=== PATIENT | female | born 1985 | race Caucasian/White ===

== ENCOUNTER 2020-01-12 08:02 | Outpatient (NON) | payer OTHER, SELFPAY ==
[2020-01-13 02:59] LABS: SARS-CoV-2 RNA PCR Negative
== END 2020-01-12 08:03 ==
LOC: ANHCOVIDDT 08:04
PROVIDERS: PCP Emergency Medicine; Visit Provider Emergency Medicine
DX: Z20.828 Contact with and (suspected) exposure to other viral communicable diseases (principal); B34.9 Viral infection, unspecified
CPT/HCPCS: 87635; C9803; U0003

== ENCOUNTER 2020-04-03 16:48 | Emergency (ER) | payer OTHER, SELFPAY ==
--- NOTE | 2020-04-03 16:52 | ED.DENTAL ---
HPI - Dental/Oral General Chief complaint: Dental/Oral Stated complaint: Toothache Time Seen by Provider: 04/03/20 16:52 Source: patient and RN notes reviewed History of Present Illness HPI Narrative: Patient is a 34-year-old female who presents the urgent care with complaints of left and right lower dental pain. Patient states is been going on for several weeks but most recently within the last week to the right lower. Patient states that she has been taking Tylenol and ibuprofen [id number] without much pain relief. Patient states she is also been using Orajel and mouthwash. Patient states she is attempted to follow-up with a dentist but no one takes her insurance . Patient also reports of some mild right lower facial swelling. Denies of any fever, chills, nausea, vomiting. No other acute complaints. No acute distress noted. Patient aware of the plan of care. Some parts of this dictation were generated by voice recognition software and may contain typographical and/or grammatical inaccuracies. Related Data Home Medications Medication Instructions Recorded Confirmed diazepam 5 mg PO PRN 04/03/20 04/03/20 Allergies Allergy/AdvReac Type Severity Reaction Status Date / Time azithromycin Allergy Unknown Nausea Unverified 04/03/20 17:03 cyclobenzaprine Allergy Unknown Nausea Verified 04/03/20 17:03 sertraline Allergy Unknown Nausea Verified 04/03/20 17:03 SERTRALINE HCL Allergy Severe HIVES Uncoded 04/03/20 17:03 Review of Systems Review of Systems: Narrative: CONSTITUTIONAL: Denies fever, chills, or sweats. EYES: Denies visual changes, redness, or discharge. ENT: Denies rhinorrhea, congestion, sore throat, or otalgia. Reports of left and right dental pain and right lower facial swelling CARDIOVASCULAR: Denies chest pain, palpitations, or edema. RESPIRATORY: Denies cough or dyspnea. GASTROINTESTINAL: Denies abdominal pain, nausea, vomiting, or diarrhea. GENITOURINARY: Denies dysuria or hematuria. SKIN: Denies rash or itching. MUSCULOSKELETAL: Denies back pain, joint pain, or myalgia. NEUROLOGIC: Denies headache, numbness, or weakness. All other systems reviewed are negative, except as documented in HPI. [facility] Social History Social History Smoking end date: 03/10/10 Alcohol intake: never Comments At the time of my signature, I reviewed and agree with the nursing past medical, surgical, social, and family history. There is no relevant family history pertinent to the patient complaint. Exam Narrative: Exam Narrative: GENERAL: This is a well-nourished, well-developed patient, in no apparent distress. HEAD: normocephalic, atraumatic. EYES: PERRL. Sclera clear/white. Vision is grossly intact. EARS: External ears normal NOSE: External nose normal with no obvious nasal discharge, nares without redness, no rhinorrhea. THROAT: Mucous membranes moist, posterior pharynx clear. DENTAL: Poor dentition with multiple carious lesions and amalgam fillings noted throughout. Cusp buccal fractures to left lower right and second molars with notable amalgam fillings. Notable pinpoint abscess and erythema to right lower canine NECK: Neck supple SKIN: warm, intact with no suspicious lesions or rash, good texture and turgor. NEURO: awake, alert, and oriented to person, place and time. There were no obvious focal neurologic abnormalities. EXTREMITIES: No clubbing, cyanosis, or edema. Course Vital Signs Vital signs: Vital Signs Temperature 97.7 F 04/03/20 16:54 Pulse Rate 89 04/03/20 16:54 Respiratory Rate 16 04/03/20 16:54 Blood Pressure 110/63 04/03/20 16:54 Pulse Oximetry 100 04/03/20 16:54 Temperature 97.7 F 04/03/20 16:54 Pulse Rate 89 04/03/20 16:54 Respiratory Rate 16 04/03/20 16:54 Blood Pressure 110/63 04/03/20 16:54 Pulse Oximetry 100 04/03/20 16:54 Reviewed MDM - Dental/Oral MDM Narrative Medical decision making narrative: Advised the patient to use Prevention mouthwash ove
[2020-04-03 16:54] VITALS: BP 110/63; PULSE 89; RESP 16; TEMP 36.5; O2SAT 100
== END 2020-04-03 17:12 | disposition home or self-care (01) ==
PROVIDERS: Emergency Provider Nurse Practitioner Family; PCP Emergency Medicine
DX: K04.7 Periapical abscess without sinus (principal); K02.9 Dental caries, unspecified
CPT/HCPCS: 99213; G0463

== ENCOUNTER 2020-06-29 22:12 | Emergency (ER) | payer OTHER, SELFPAY ==
--- NOTE | ~2020-06-29 | XR_ITS ---
XR chest 2V DATE: 06/30/2020 00:01 INDICATION: Midline chest pain for 2 days. Shortness of breath. TECHNIQUE: PA and lateral views COMPARISON: 02/03/2013 PA and lateral chest FINDINGS: Normal heart size. No hilar or mediastinal enlargement. No pulmonary infiltrate or consolid ation, pleural effusion or pulmonary vascular congestion or pneumothorax. IMPRESSION: No active cardiopulmonary disease Reviewed, dictated and finalized at location A.
[2020-06-29 22:32] VITALS: BP 121/56; PULSE 82; RESP 18; TEMP 36.6; O2SAT 100
--- NOTE | 2020-06-29 22:38 | ECG_ITS ---
Measurements Intervals [place] Rate: 72 P: 78 AL: 174 QRS: 73 QRSD: 93 T: 72 QT: 362 QTc: 398 Interpretive Statements SINUS RHYTHM DELAYED PRECORDIAL R/S TRANSITION BORDERLINE ECG Electronically Signed On 06-30-2020 6:47:03 CDT by Richard Lyles D.O.
--- NOTE | 2020-06-30 00:02 | ED.GENADULT ---
HPI - General Adult General Chief complaint: Chest Pain Stated complaint: chest pain Time Seen by Provider: 06/29/20 23:52 Source: patient History of Present Illness HPI narrative: Patient is a 34 y/o female complaining intermittent mid sternal chest pain for last 2 days. She describes her pain as labor contraction and rates it as 6/10 when it occurs. She states that taking a deep breath aggravates her pain. She took meds for acid reflux, which did not help. She denies any SOB, cough or fever. Related Data Home Medications Medication Instructions Recorded Confirmed diazepam 5 mg PO PRN 04/03/20 04/03/20 Allergies Allergy/AdvReac Type Severity Reaction Status Date / Time sertraline Allergy Severe Hives Verified 06/30/20 00:20 azithromycin AdvReac Unknown Nausea Unverified 06/30/20 00:20 cyclobenzaprine AdvReac Unknown Nausea Verified 06/30/20 00:20 Review of Systems Constitutional: Constitutional: Denies chills, Denies fever(s), Denies headache(s) and Denies weakness Eyes: Eyes: Denies blurry vision ENT: Denies headache(s) and Denies neck pain Cardiovascular: Cardiovascular: Denies chest pain and Denies dyspnea Respiratory: Respiratory: Denies cough and Denies dyspnea Gastrointestinal: Gastrointestinal: Denies abdominal pain, Denies diarrhea, Denies nausea and Denies vomiting Genitourinary: Genitourinary: Denies hematuria and Denies dysuria Musculoskeletal: Musculoskeletal: Denies back pain and Denies neck pain Neurologic: Denies headache(s) and Denies weakness [facility] Social History Social History Smoking end date: 03/10/10 Alcohol intake: never Gender identity (if verbalized by the patient): Female Exam Const: General: no acute distress and well developed Orientation/consciousness: oriented to person, oriented to place, oriented to time and patient oriented x3 HENMT: Head: normocephalic Ears: external ears normal General nose exam: Normal external nose present Eyes: General: appearance normal, both eyes and all related structures Conjunctivae: conjunctivae normal Neck: Neck: normal visual inspection and full ROM Chest: Chest palpation & inspection: normal inspection of the chest and no tenderness Resp: Effort & Inspection: normal respiratory effort Auscultation: clear to auscultation bilaterally Cardio: Rate: regular rate Rhythm: regular rhythm GI: GI Palp: No abdominal tenderness and Yes Soft to palpation Skin: General skin exam: normal color and turgor normal Neuro: General: oriented to person, oriented to place, oriented to time and patient oriented x3 Cognition (Neuro): normal cognition Extrem: General: normal to inspection, full ROM and no pedal edema Psych: Appearance: grossly normal Mental Status: mental status grossly normal Affect: normal affect Course Reevaluation(s) Reevaluation #1: Rechecked. Patient feels better. Discussed with patient about test results. She wants to go home. She does not want to wait for second Troponin to be done. Date: 06/30/20 Time: 01:50 Vital Signs Vital signs: Vital Signs Temperature 36.6 C 06/29/20 22:32 Pulse Rate 82 06/29/20 22:32 Respiratory Rate 18 06/29/20 22:32 Blood Pressure 121/56 L 06/29/20 22:32 Pulse Oximetry 100 06/29/20 22:32 Temperature 36.6 C 06/29/20 22:32 Pulse Rate 73 06/30/20 02:37 Respiratory Rate 18 06/30/20 02:37 Blood Pressure 121/78 06/30/20 02:37 Pulse Oximetry 98 06/30/20 02:37 Medical Decision Making Vital Signs Vital Signs: Vital Signs Temperature 36.6 C 06/29/20 22:32 Pulse Rate 82 06/29/20 22:32 Respiratory Rate 18 06/29/20 22:32 Blood Pressure 121/56 L 06/29/20 22:32 Pulse Oximetry 100 06/29/20 22:32 Temperature 36.6 C 06/29/20 22:32 Pulse Rate 73 06/30/20 02:37 Respiratory Rate 18 06/30/20 02:37 Blood Pressure 121/78 06/30/20 02:37 Pulse Oximetry 98 06/30/20 02:37
[2020-06-30 00:19] VITALS: BP 96/68; PULSE 75; RESP 14; O2SAT 99
[2020-06-30 00:20] LABS: Basophils Percent Auto 0.3 % (0.2-1.2); Eosinophils Absolute Auto 0.1 K/mm3 (0-0.3); Eosinophils Percent Auto 1.1 % (0-4.4); Hematocrit 39.1 % (37.0-47.0); Hemoglobin 13.2 g/dL (12.0-15.0); Immature Granulocyte Absolute 0.05 K/mm3 (0.00-0.031); Immature Granulocyte Percent A 0.4 % (0-0.5); Lymphocytes Absolute Auto 2.19 K/mm3 (0.9-3.2); Lymphocytes Percent Auto 17.6 % (18.3-44.2); Mean Corpuscular HGB Conc 33.8 g/dl (32-36); Mean Corpuscular Hemoglobin 30.7 pg (26-34); Mean Corpuscular Volume 90.9 fl (80-100); Mean Platelet Volume 11.1 fl (7.4-10.4); Monocytes Absolute Auto 0.9 K/mm3 (0.1-0.6); Monocytes Percent Auto 7.3 % (2.6-8.5); Neutrophils Absolute Auto 9.1 K/mm3 (1.3-6.7); Neutrophils Percent Auto 73.3 % (45.5-73.1); Platelet Count Result 183 k/mm3 (150-375); Red Cell Distribution Width 12.1 % (11.5-14.5); White Blood Count 12.5 K/mm3 (4.5-10.0)
[2020-06-30 00:32] LABS: D Dimer 0.47 ug/mL (<0.48)
[2020-06-30 00:38] LABS: Alanine Aminotransferase 12 U/L (4-35); Albumin Level 4.3 g/dL (3.5-5.1); Alkaline Phosphatase 53 U/L (38-126); Anion Gap 6 mmol/L (8-16); Aspartate Amino Transferase 21 U/L (14-36); Bilirubin,Total 0.4 mg/dL (0.2-1.3); Blood Urea Nitrogen 8 mg/dL (7-17); Calcium 9.1 mg/dL (8.4-10.2); Carbon Dioxide 29 mmol/L (22-30); Chloride 106 mmol/L (98-107); Estimated CRCL calculation 94 ml/min; Estimated Glomerular Filt Rate > 60; Glucose 96 mg/dL (65-105); Sodium 141 mmol/L (137-145)
[2020-06-30 00:42] LABS: Troponin I < 0.012 ng/mL (0.000-0.034)
[2020-06-30] MEDS: KETOROLAC 15 MG/ML VIAL (*BKC) IV PUSH ×2 (00:49→01:47)
[2020-06-30 01:12] LABS: Potassium 3.5 mmol/L (3.4-5.0)
[2020-06-30] MEDS: SODIUM CHLORIDE 0.9% IV 1,000 ML 999 ML IV CONT (01:42)
[2020-06-30] MEDS: diphenhydrAMINE HCl INJ 50 MG/ML VIAL 25 MG IV PUSH (01:43)
[2020-06-30] MEDS: METOCLOPRAMIDE HCL INJ 10 MG/2 ML VIAL IV PUSH (01:43)
[2020-06-30 02:37] VITALS: BP 121/78; PULSE 73; RESP 18; O2SAT 98
--- NOTE | 2020-07-08 21:46 | PC.NURSE ---
LATE ENTRY This note is being entered to document information to the patient's record. The following information was omitted on [], by iv of malachi fagan @[phone][].
== END 2020-06-30 02:40 | disposition home or self-care (01) ==
PROVIDERS: Emergency Provider Emergency Medicine; PCP Emergency Medicine
DX: R07.2 Precordial pain (principal); R94.31 Abnormal electrocardiogram [ECG] [EKG]
CPT/HCPCS: 36415; 71046; 80053; 84484; 85025; 85380; 93005; 96361; 96374; 96375; 99284; J1200; J1885; J2765; J7030

== ENCOUNTER 2020-07-03 08:02 | Emergency (ER) | payer OTHER, SELFPAY ==
[2020-07-03 08:14] VITALS: BP 111/65; PULSE 83; RESP 16; TEMP 36.7; O2SAT 100
--- NOTE | 2020-07-03 08:20 | ED.URI ---
HPI - URI/Sore Throat General Chief Complaint: Upper Respiratory Infection Stated Complaint: sore throat Source: patient and RN notes reviewed Limitations: no limitations History of Present Illness HPI Narrative: The patient, who is a smoker/ nondrinker with a prior history of Covid, presents with sore throat. Patient states she has now nearly weeklong history of of symptoms which include sore throat for last couple days and congestion. This was preceded by chest tightness, for which she was seen in emergency department and had noncontributory EKG, chest x-ray and labs [WBC equal 12.5]-which she was treated symptomatically. She states her chest pain is improved but she has sore throat. No fever measured, significant cough, earache, vomiting/diarrhea, loss of taste/smell, CP, rash, S OB. She reports she had proven Covid at the end of January, and is not immunized. Related Data Home Medications Medication Instructions Recorded Confirmed diazepam 5 mg PO PRN 04/03/20 07/03/20 omeprazole 20 mg DAILY 07/03/20 07/03/20 Allergies Allergy/AdvReac Type Severity Reaction Status Date / Time sertraline Allergy Severe Hives Verified 06/30/20 00:20 azithromycin AdvReac Unknown Nausea Unverified 06/30/20 00:20 cyclobenzaprine AdvReac Unknown Nausea Verified 06/30/20 00:20 Review of Systems Review of Systems: Narrative: General/Constitutional: No weight loss,fever Eyes: N0: Redness,discharge Ears/Nose/Throat: No: Epistaxis,ear discharge Respiratory: Denies: Hemoptysis Gastrointestinal: No Vomiting, Bleeding-rectal Skin: No Lumps, eruption Neurologic: No Focal Weakness,Sz Hematologic: Denies: Petechiae/Purpura Psychiatric: No: Suicida ideationl All Other Systems: Reviewed and Negative PMFSH Social History Social History Smoking end date: 03/10/10 Alcohol intake: never Gender identity (if verbalized by the patient): Female Comments At time of signature, agree with nursing past medical, surgical, social and family history. There is no relevant family history pertinent to the presenting complaint Exam Narrative: Exam Narrative: General Appearance: Well appearing, Well nourished EYE: PERRLA, Conjunctiva clear Ears: Auditory canal normal, TM normal Nose: Rhinorrhea, Mucousal erythema Mouth/Throat: MM moist, Uvula midline, +Pharyngeal erythema w/o exudate Neck: Supple, No adenopathy Respiratory: No respiratory distress, airway patent Cardiovascular: No JVD Musculoskeletal: Non tender, Normal strength Skin: Warm, Dry Neurological: A&O x3, CN II-XII intact Psychiatric: Normal mood, Normal affect Course Vital Signs Vital signs: Vital Signs Temperature 98.1 F 07/03/20 08:14 Pulse Rate 83 07/03/20 08:14 Respiratory Rate 16 07/03/20 08:14 Blood Pressure 111/65 07/03/20 08:14 Pulse Oximetry 100 07/03/20 08:14 Temperature 98.1 F 07/03/20 08:14 Pulse Rate 83 07/03/20 08:14 Respiratory Rate 16 07/03/20 08:14 Blood Pressure 111/65 07/03/20 08:14 Pulse Oximetry 100 07/03/20 08:14 MDM - URI/Sore Throat Lab Data Labs: Strep Screen Presumptive Negative *(Reference Range: Negative)* Discharge Plan Discharge Clinical Impression: Pharyngitis Patient Disposition: Home, Self-Care Condition: Stable Instructions: Antibiotic Form, Pharyngitis (ED) Prescriptions: New Lidocaine Viscous 2 % solution 5 ml MUCOUS MEM QID PRN (Reason: pain) Qty: 100 RF: 0 amoxicillin-pot clavulanate [Augmentin] 500-125 mg tablet 1 tablet PO Q12H Qty: 20 RF: 0 No Action diazepam 5 mg tablet 5 mg PO PRN RF: 0 omeprazole 20 mg capsule,delayed release(DR/EC) 20 mg DAILY RF: 0 Follow-up/Referrals: Cy Perla MD [Primary Care Provider] -
[2020-07-04 20:46] LABS: SARS-CoV-2 RNA PCR Negative
== END 2020-07-03 08:40 | disposition home or self-care (01) ==
PROVIDERS: Emergency Provider Emergency Medicine; PCP Emergency Medicine
DX: J02.9 Acute pharyngitis, unspecified (principal); Z20.822 Contact with and (suspected) exposure to COVID-19; K21.9 Gastro-esophageal reflux disease without esophagitis
CPT/HCPCS: 87081; 87880; 99213; C9803; G0463; U0003; U0005

== ENCOUNTER 2021-01-27 16:03 | Emergency (ER) | payer OTHER, SELFPAY ==
[2021-01-27 16:09] VITALS: BP 110/52; PULSE 75; RESP 16; TEMP 37.2; O2SAT 99
--- NOTE | 2021-01-27 16:11 | ED.DENTAL ---
HPI - Dental/Oral General Chief complaint: Dental/Oral Stated complaint: Swelling on Face Time Seen by Provider: 01/27/21 16:11 Source: patient and RN notes reviewed Mode of arrival: ambulatory Limitations: no limitations History of Present Illness HPI Narrative: Sheila 35-year-old female patient who ambulated into the [facility]. Patient states she has had left sided facial swelling and left pain for the last 2 days. Patient states the pain in her teeth started 2 days ago. Patient states that yesterday swelling to the left jaw started. Patient states her highest temp was 99.3. Patient does have an appointment with [facility] school of dentistry in March. MD Complaint: tooth pain Related Data Home Medications Medication Instructions Recorded Confirmed diazepam 5 mg PO BID 04/03/20 01/27/21 amitriptyline 25 mg PO HS 01/27/21 01/27/21 Allergies Allergy/AdvReac Type Severity Reaction Status Date / Time sertraline Allergy Severe Hives Verified 01/27/21 16:09 azithromycin AdvReac Unknown Nausea Verified 01/27/21 16:09 cyclobenzaprine AdvReac Unknown Nausea Verified 01/27/21 16:09 Review of Systems Review of Systems: CONSTITUTIONAL: Denies body aches, fever, chills, or sweats. EYES: Denies visual changes, redness, or discharge. ENT: Denies rhinorrhea, congestion, sore throat, or otalgia+ left jaw swelling and tooth pain CARDIOVASCULAR: Denies chest pain, palpitations, or edema. RESPIRATORY: Denies cough or dyspnea. GASTROINTESTINAL: Denies abdominal pain, nausea, vomiting, or diarrhea. GENITOURINARY: Denies dysuria or hematuria. SKIN: Denies rash, itching, or wounds. MUSCULOSKELETAL: Denies back pain, joint pain, or myalgia. NEUROLOGIC: Denies headache, numbness, tingling, or weakness. PSYCH: Denies depression or anxiety. All systems reviewed & are unremarkable except as noted in HPI and below PMFSH Social History Social History Smoking end date: 03/10/10 Alcohol intake: never Gender identity (if verbalized by the patient): Female Comments At time of signature, I have reviewed and agree with nursing past medical, surgical, social and family history unless otherwise noted. Please see nursing chart for further information. There is no relevant family history pertinent to the presenting complaint Exam Narrative: GENERAL: Well-appearing, well-nourished, and in no acute distress. HEAD: Normocephalic, atraumatic. EYES: EOMI. No redness or drainage. Conjunctivae normal. ENT: Mucous membranes pink and moist. Nares clear. No rhinorrhea. edema noted to left maxillary area, teeth 17 and 18 are fractured with swelling, tooth 16 is fractured. NECK: Normal AROM. Supple. No lymphadenopathy. CHEST: No respiratory distress. Clear to auscultation. MUSCULOSKELETAL: No bony tenderness. EXTREMITIES: Normal range of motion. No edema. SKIN: Warm, dry, no rash. Capillary refill normal. Normal skin turgor. NEURO: No focal deficits. Alert and oriented x3. Gait steady. PSYCH: Normal affect. No signs of depression or anxiety. Course Vital Signs Vital signs: Vital Signs Temperature 37.2 C 01/27/21 16:09 Pulse Rate 75 01/27/21 16:09 Respiratory Rate 16 01/27/21 16:09 Blood Pressure 110/52 L 01/27/21 16:09 Pulse Oximetry 99 01/27/21 16:09 Temperature 37.2 C 01/27/21 16:09 Pulse Rate 75 01/27/21 16:09 Respiratory Rate 16 01/27/21 16:09 Blood Pressure 110/52 L 01/27/21 16:09 Pulse Oximetry 99 01/27/21 16:09 Reviewed MDM - Dental/Oral MDM Narrative Medical decision making narrative: Swelling to left maxillary area is noted. dental caries noted throughout, f/u with dentist. Take ibuprofen or tylenol for pain. Take augmentin until completed. Differential Diagnosis Differential diagnosis: Likely gingival abscess, dental caries, toothache, dental abscess and fracture of tooth Medical Records Attestation: I reviewed the patient's me
== END 2021-01-27 16:32 | disposition home or self-care (01) ==
PROVIDERS: Emergency Provider Nurse Practitioner Family; PCP Emergency Medicine
DX: K04.7 Periapical abscess without sinus (principal); K21.9 Gastro-esophageal reflux disease without esophagitis; F41.9 Anxiety disorder, unspecified
CPT/HCPCS: 99213; G0463

== ENCOUNTER 2021-11-06 08:26 | Emergency (ER) | payer OTHER, SELFPAY ==
--- NOTE | 2021-11-06 08:32 | ED.UPPEXIN ---
HPI - Extremity Injury (Upper) General Chief Complaint: Extremity Injury, Upper Stated Complaint: Pain in left shoulder Time Seen by Provider: 11/06/21 08:32 Source: patient Mode of arrival: ambulatory Limitations: no limitations History of Present Illness HPI narrative: Ms. Hamlin is a 36-year-old female patient presenting to the clinic today with complaints of left shoulder pain which started Friday. She states her shoulder feels tight and she is unable to move her head from side to side without pain. She denies trauma or injury to the area. She also denies increases in activity or new activity she is not used to. She does report increased stress in her life recently. She has been using Aspercreme, ibuprofen, and a heating pad for pain relief which have provided minimal relief. She does report one instance of numbness and tingling to her left arm and leg, but otherwise denies these symptoms. She denies fever, chills, nausea, vomiting, headache, visual changes. Related Data Home Medications Medication Instructions Recorded Confirmed diazepam 5 mg tablet 5 mg PO BID 04/03/20 01/27/21 amitriptyline 25 mg tablet 25 mg PO HS 01/27/21 01/27/21 Allergies Allergy/AdvReac Type Severity Reaction Status Date / Time sertraline Allergy Severe Hives Verified 01/27/21 16:09 azithromycin AdvReac Unknown Nausea Verified 01/27/21 16:09 cyclobenzaprine AdvReac Unknown Nausea Verified 01/27/21 16:09 Review of Systems Review of Systems: Pertinent positives per HPI. Patient denies any fever, chills, rash, headache, visual changes, dizziness, cough, runny nose, sore throat, shortness of breath, chest pain, palpitations, nausea, vomiting, diarrhea, constipation, abdominal pain, or any urinary issues. PMFSH Social History Social History Smoking end date: 03/10/10 Alcohol intake: never Gender identity (if verbalized by the patient): Female Comments At the time of my signature, I reviewed and agree with the nursing past medical, surgical, social, and family history. There is no relevant family history pertinent to the patient complaint. Exam Narrative: General: Well-developed, well nourished, in no apparent distress Head: Normocephalic, atraumatic. Cardio: Regular rate and rhythm, s1 and s2 normal, no murmur appreciated. Resp: Clear to auscultation bilaterally, no rhonchi, rales, wheezing or rubs. Musculoskeletal: No deformity, tender to palpation of the left trapezius muscle, no bony tenderness or midline tenderness, grossly normal range of motion but pain increases with rotation of the head/neck and with shoulder flexion and extension, muscle strength strong and equal, peripheral pulse strong, no edema, no cyanosis, normal gait and station Course Course Emergency Course: Portions of this record may have been created with voice recognition software. Level of Care: Express Care Visit Vital Signs Vital signs: Vital Signs Temperature 36.6 C 11/06/21 08:35 Pulse Rate 83 11/06/21 08:35 Respiratory Rate 20 11/06/21 08:35 Blood Pressure 118/91 H 11/06/21 08:35 Pulse Oximetry 99 11/06/21 08:35 Temperature 36.6 C 11/06/21 08:35 Pulse Rate 83 11/06/21 08:35 Respiratory Rate 20 11/06/21 08:35 Blood Pressure 118/91 H 11/06/21 08:35 Pulse Oximetry 99 11/06/21 08:35 Vital signs reviewed MDM - Extremity Injury (Upper) MDM Narrative Medical decision making narrative: At the time of visit patient is resting comfortably on exam table. Patient is presenting with left trapezius pain without mechanism of injury. There is no bony tenderness and tenderness is not reproducible on palpation of the spine. Tenderness is reproducible on palpation of the left trapezius muscle. She reports increased stress in her life currently. This appears to be increased muscle soreness and tightness. I will treat the patient with a muscle relaxer and naproxen. Th
[2021-11-06 08:35] VITALS: BP 118/91; PULSE 83; RESP 20; TEMP 36.6; O2SAT 99
== END 2021-11-06 09:03 | disposition home or self-care (01) ==
PROVIDERS: Emergency Provider Nurse Practitioner Family; PCP Emergency Medicine
DX: S16.1XXA Strain of muscle, fascia and tendon at neck level, initial encounter (principal); X58.XXXA Exposure to other specified factors, initial encounter; K21.9 Gastro-esophageal reflux disease without esophagitis; F41.9 Anxiety disorder, unspecified
CPT/HCPCS: 99213; G0463

== ENCOUNTER 2022-05-08 10:11 | Emergency (ER) | payer OTHER, SELFPAY ==
[2022-05-08 10:38] VITALS: BP 109/69; PULSE 89; RESP 18; TEMP 36.7; O2SAT 100
[2022-05-08 10:59] LABS: Appearance Urine Clear (Clear); Bilirubin Urine Negative (Negative); Blood Urine Negative (Negative); Color Urine Yellow (Yellow); Glucose Urine UA Negative (Negative); Ketones Urine Negative (Negative); Leukocyte Esterase Ur Negative LEU/UL (Negative); Nitrate Urine Negative (Negative); Protein Urine Negative (Negative); Specific Grav Ur 1.007 (1.001-1.035); Urobilinogen Urine 0.2 mg/dL (<2.0); pH Urine 6.5 (5.0-9.0)
[2022-05-08 11:02] LABS: Add Urine Microscopic? NO
--- NOTE | 2022-05-08 12:13 | PC.NURSE ---
EDP at bedside to assess pt.
--- NOTE | 2022-05-08 13:23 | ED.GENADULT ---
HPI - General Adult General Chief complaint: Unspecified Stated complaint: DENTAL INFECTION AND ?UTI Time Seen by Provider: 05/08/22 11:49 Source: patient Mode of arrival: ambulatory Limitations: no limitations History of Present Illness HPI narrative: 36-year-old female presents today with complaints of tooth infection that she has had for 3 months. Patient states she was treated in February with penicillin, March she was treated with clindamycin, and currently is Augmentin for this tooth infection . Patient has seen a dentist for this infection and was sent to the [facility] school of dentistry. She states she was seen there yesterday where they did imaging and told her that there was no abscess and that she needs root canal possible extraction of the tooth but she is continue to have pain. They knew that she was on Augmentin and did not extend her antibiotics or change her antibiotics. Patient was concerned she was septic . Patient without fever, body aches, chills. Patient also with complaints of possible UTI noting pelvic pressure but denies dysuria, hematuria, foul-smelling urine, again no fever chills or body aches. She states that this discomfort has been there for about 2 weeks. Patient does have a history of a hysterectomy. Onset (ago): month(s) Related Data Home Medications Medication Instructions Recorded Confirmed diazepam 5 mg tablet 5 mg PO BID 04/03/20 01/27/21 amitriptyline 25 mg tablet 25 mg PO HS 01/27/21 01/27/21 Allergies Allergy/AdvReac Type Severity Reaction Status Date / Time sertraline Allergy Severe Hives Verified 01/27/21 16:09 azithromycin AdvReac Unknown Nausea Verified 01/27/21 16:09 cyclobenzaprine AdvReac Unknown Nausea Verified 01/27/21 16:09 Review of Systems Review of Systems: CONSTITUTIONAL: Denies fever, chills, or sweats. EYES: Denies visual changes, redness, or discharge. ENT: Left upper tooth pain. Denies rhinorrhea, congestion, sore throat, or otalgia. CARDIOVASCULAR: Denies chest pain, palpitations, or edema. RESPIRATORY: Denies cough or dyspnea. GASTROINTESTINAL: Denies abdominal pain, nausea, vomiting, or diarrhea. GENITOURINARY: UTI possible denies dysuria or hematuria. SKIN: Denies rash or itching. MUSCULOSKELETAL: Denies back pain, joint pain, or myalgia. NEUROLOGIC: Denies headache, numbness, dizziness, or weakness. PSYCHIATRIC: Denies anxiety or depression. [facility] Social History Social History Smoking end date: 03/10/10 Alcohol intake: never Gender identity (if verbalized by the patient): Female Exam Narrative: GENERAL: Well-appearing, well-nourished, and in no acute distress. HEAD: Normocephalic, atraumatic. EYES: PERRLA and EOMI. ENT: Widespread dental decay. Tenderness to tooth #15. No erythema noted. No obvious abscess seen. Nares clear, no rhinorrhea or epistaxis. Mucous membranes moist. Oropharynx without tonsillar hypertrophy exudate or other lesions. Bilateral TMs pearly henning nonbulging NECK: Supple. No adenopathy or masses. No carotid bruits or JVD CHEST: Clear to auscultation. No respiratory distress. No wheezes rales or rhonchi HEART: Regular rate and rhythm. No murmur heard. Normal peripheral pulses. ABDOMEN: Soft, nontender, nondistended, normal active bowel sounds. EXTREMITIES: Normal range of motion. No edema. SKIN: Warm, dry, no rash. NEURO: No focal deficits. Alert and oriented x3. PSYCH: Normal mood and affect. Course Vital Signs Vital signs: Vital Signs Temperature 98.1 F 05/08/22 10:38 Pulse Rate 89 05/08/22 10:38 Respiratory Rate 18 05/08/22 10:38 Blood Pressure 109/69 05/08/22 10:38 Pulse Oximetry 100 05/08/22 10:38 Oxygen Delivery Room Air 05/08/22 10:38 Temperature 98.1 F 05/08/22 10:38 Pulse Rate 89 05/08/22 10:38 Respiratory Rate 18 05/08/22 10:38 Blood Pressure 109/69 05/08/22 10:38 Pulse Oximetry 100 05/08/22 10:3
== END 2022-05-08 13:41 | disposition home or self-care (01) ==
PROVIDERS: Emergency Medicine; Emergency Provider Nurse Practitioner Family; PCP Emergency Medicine
DX: K08.89 Other specified disorders of teeth and supporting structures (principal); G89.29 Other chronic pain
CPT/HCPCS: 81003; 81025; 99283

== ENCOUNTER 2022-07-05 19:22 | Emergency (ER) | payer OTHER, SELFPAY ==
[2022-07-05 19:28] VITALS: BP 105/68; PULSE 88; RESP 20; TEMP 36.4; O2SAT 100
[2022-07-05 22:47] VITALS: BP 102/70; PULSE 74; RESP 16; TEMP 36.6; O2SAT 100
[2022-07-05 23:30] VITALS: BP 123/58; PULSE 71; RESP 15; TEMP 36.6; O2SAT 100
[2022-07-06] MEDS: AMOXICILLIN/CLAVULANATE K 875-125 MG TAB 1 TABLET PO (00:48)
[2022-07-06] MEDS: HYDROcodone/acetaminophen (*CRX) 5-325 MG TABLET 1 TAB PO (01:03)
--- NOTE | 2022-07-06 01:17 | ED.DENTAL ---
HPI - Dental/Oral General Chief complaint: Dental/Oral Stated complaint: Dental abscess Time Seen by Provider: 07/05/22 23:31 Source: patient Mode of arrival: ambulatory Limitations: no limitations History of Present Illness HPI Narrative: This is a 36-year-old female presents the ED with chief complaint of left lower dental pain onset x1 week. Reports pain near the molars. States it is radiating into her jaw and ear. She has a dental appointment in 3 days. States she is here because the pain is not controlled with ibuprofen or Tylenol at home. Denies fevers, chills, sore throat. Related Data Home Medications Medication Instructions Recorded Confirmed diazepam 5 mg tablet 5 mg PO BID 04/03/20 01/27/21 amitriptyline 25 mg tablet 25 mg PO HS 01/27/21 01/27/21 Allergies Allergy/AdvReac Type Severity Reaction Status Date / Time sertraline Allergy Severe Hives Verified 07/05/22 19:23 azithromycin AdvReac Unknown Nausea Verified 07/05/22 19:23 cyclobenzaprine AdvReac Unknown Nausea Verified 07/05/22 19:23 Review of Systems Review of Systems: CONSTITUTIONAL: Denies fever, chills, or sweats. ENT: See HPI SKIN: Denies rash or itching. MUSCULOSKELETAL: Denies back pain, joint pain, or myalgia. NEUROLOGIC: Denies headache, numbness, dizziness, or weakness. [facility] Social History Social History Smoking end date: 03/10/10 Alcohol intake: never Gender identity (if verbalized by the patient): Female Exam Narrative: GENERAL: Well-appearing, well-nourished, and in no acute distress. HEAD: Normocephalic, atraumatic. EYES: PERRLA and EOMI. ENT: Nares clear, no rhinorrhea or epistaxis. Mucous membranes moist. Oropharynx without tonsillar hypertrophy exudate or other lesions. Cracked molars on the left lower mouth. Dental infection noted. Multiple dental caries noted. Floor the mouth is intact. No trismus. No drooling. Uvula midline. NECK: Supple. No adenopathy or masses. SKIN: Warm, dry, no rash. Course Vital Signs Vital signs: Vital Signs Temperature 97.6 F 07/05/22 19:28 Pulse Rate 88 07/05/22 19:28 Respiratory Rate 20 07/05/22 19:28 Blood Pressure 105/68 07/05/22 19:28 Pulse Oximetry 100 07/05/22 19:28 Oxygen Delivery Room Air 07/05/22 19:28 Temperature 98 F 07/06/22 02:14 Pulse Rate 73 07/06/22 02:14 Respiratory Rate 15 07/06/22 02:14 Blood Pressure 114/62 07/06/22 02:14 Pulse Oximetry 98 07/06/22 02:14 Oxygen Delivery Room Air 07/05/22 19:28 MDM - Dental/Oral MDM Narrative Medical decision making narrative: This is a 36-year-old female presents the ED with chief complaint of left lower dental pain. Vitals are stable. Afebrile. Exam reassuring. Pain control with [place] and a dose of Augmentin was given here. She has a dental appointment this week. She will be given a prescription for Augmentin and pain control until she gets to the dentist. Patient is understanding and agreeable with plan for discharge and follow-up at this time. Discharge Plan Discharge Clinical Impression: Dental caries, Dental abscess Patient Disposition: Home, Self-Care Condition: Stable Instructions: Antibiotic Form, Dental Abscess (ED) Additional Instructions: Your symptoms today are consistent with dental abscess. Please take this antibiotic to its full course. You should also follow-up closely with your dentist. If you have any new or worsening symptoms like fevers or skin changes please return to the ER for further evaluation. Please continue to take Tylenol 500 and ibuprofen every 4-6 hours as needed for pain. Prescriptions: New amoxicillin-pot clavulanate 875-125 mg tablet 1 tablet PO Q12H Qty: 10 0RF oxycodone-acetaminophen [Endocet] 5-325 mg tablet 1 tablet PO Q8H PRN (Reason: pain, severe) Qty: 9 0RF No Action diazepam 5 mg tablet 5 mg PO BID amitriptylin
[2022-07-06 01:21] VITALS: BP 114/70; PULSE 60; RESP 15; O2SAT 98
[2022-07-06 02:14] VITALS: BP 114/62; PULSE 73; RESP 15; TEMP 36.6; O2SAT 98
== END 2022-07-06 02:16 | disposition home or self-care (01) ==
PROVIDERS: Emergency Provider Physician Assistant; PCP Family Medicine
DX: K04.7 Periapical abscess without sinus (principal); K02.9 Dental caries, unspecified
CPT/HCPCS: 99283; A9270

== ENCOUNTER 2023-09-03 16:37 | Outpatient (CLI) | payer OTHER, SELFPAY ==
--- NOTE | ~2023-09-03 | MR_ITS ---
MRI of the brain Clinical History: Arnold-Chiari syndrome Technique: Axial and sagittal T1-weighted images were acquired. These were followed by axial T2-weigh petrona, diffusion weighted, gradient, and FLAIR images. COMPARISON: 11/22/2010 Findings: No abnormal signal seen in the brain parenchyma. No acute infarct, intracranial hemorrhage, or mass lesion. Ventricles and subarachnoid spaces are unremarkable. Orbits are unremarkable. Paranasal sinuses and m astoid air cells are clear. Major intracranial flow voids are intact. No distinct inferior cerebellar tonsillar herniation to suggest Arnold-Chiari malformation. Sagittal midline structures appear intact. IMPRESSION: No significant abnormalities seen. No no definite MR imaging evidence for Chiari I malformation. Reviewed, dictated and finalized at location . IMPRESSION: No significant abnormalities seen. No no definite MR imaging evidence for Chiar i I malformation.
== END 2023-09-03 16:38 | disposition home or self-care (01) ==
LOC: ANHIMG 16:37
PROVIDERS: PCP Family Medicine; Visit Provider Family Medicine
DX: Q07.01 Arnold-Chiari syndrome with spina bifida (principal)
CPT/HCPCS: 70551

== ENCOUNTER 2023-12-22 13:24 | Outpatient (CLI) | payer OTHER, SELFPAY ==
--- NOTE | ~2023-12-22 | MM_ITS ---
EXAMINATION: MM diagnostic chris BI w antione HISTORY: Breast pain TECHNIQUE: Additional 3-D tomosynthesis images of the breasts were performed and synthetic 2-D images were generated. CAD analysis was submitted and interpreted. COMPARISON: No prior studies for comparison. BREAST PARENCHYMAL COMPOSITION: Not dense: There are scattered areas of fibroglandular density. FINDINGS: There are no suspicious masses, calcifications or architectural distortion in either breast to suggest malignancy. IMPRESSION: 1. No mammographic evidence for malignancy in either breast. 2. Routine yearly screening mammogram and regular clinical breast examination are recommended. BI-RADS Category 1: Negative Reviewed, dictated and finalized at location B. IMPRESSION: 1. No mammographic evidence for malignancy in either breast. 2. Routine yearly screening mammogram and regular clinical breast examination a re recommended. BI-RADS Category 1: Negative
== END 2023-12-22 13:25 | disposition home or self-care (01) ==
LOC: ANHIMG 13:27
PROVIDERS: PCP Family Medicine; Visit Provider Obstetrics & Gynecology
DX: N64.4 Mastodynia (principal)
CPT/HCPCS: 77062; 77066; G0279

== ENCOUNTER 2023-12-29 10:32 | Outpatient (CLI) | payer OTHER, SELFPAY ==
--- NOTE | 2023-12-29 | EST_ITS ---
Patient Info Name: Sheila Hamlin Age: 38 years : 1985 Gender: Female Ht: 67 in Wt: 190 lbs BSA: 2.04 m2 HR: 64 bpm BP: 104 / 68 mmHg Exam Date: 12/29/2023 11:03 AM Exam Location: Echo Lab Patient Status: Outpatient Admit Date: 12/29/2023 Staff Ordering Physician: KAVONREKHA Attending Provider: KAVON*REKHA Booth Exercise Technologist: Janis Tate RDCS Nurse: Silvia Torres APN Exam Type: CA stress test treadmill Study Info A treadmill exercise stress test was performed. Summary 1. Sinus rhythm, normal electrocardiogram. 2. No ST segment abnormalities noted following treadmill exercise. 3. Graded exercise test to 91% of age predicted maximum heart rate clinically and electrocardiographically unremarkable. Protocol: [place] Stress ECG Details Stage: REST Duration (min): 2 min : 22 sec Speed (mph): 0.0 Grade (%): 0 HR (bpm): 66 SBP (mmHg): 104 DBP (mmHg): 68 METS: --- Stage: REST Duration (min): 6 min : 23 sec Speed (mph): 0.0 Grade (%): 0 HR (bpm): 71 SBP (mmHg): 104 DBP (mmHg): 68 METS: --- Stage: STAGE 1 Duration (min): 1 min : 0 sec Speed (mph): 1.7 Grade (%): 10 HR (bpm): 107 SBP (mmHg): 104 DBP (mmHg): 68 METS: --- Stage: STAGE 1 Duration (min): 2 min : 0 sec Speed (mph): 1.7 Grade (%): 10 HR (bpm): 114 SBP (mmHg): 104 DBP (mmHg): 68 METS: --- Stage: STAGE 1 Duration (min): 3 min : 0 sec Speed (mph): 1.7 Grade (%): 10 HR (bpm): 122 SBP (mmHg): 108 DBP (mmHg): 67 METS: --- Stage: STAGE 2 Duration (min): 1 min : 0 sec Speed (mph): 2.5 Grade (%): 12 HR (bpm): 134 SBP (mmHg): 108 DBP (mmHg): 67 METS: --- Stage: STAGE 2 Duration (min): 2 min : 0 sec Speed (mph): 2.5 Grade (%): 12 HR (bpm): 140 SBP (mmHg): 121 DBP (mmHg): 63 METS: --- Stage: STAGE 2 Duration (min): 3 min : 0 sec Speed (mph): 2.5 Grade (%): 12 HR (bpm): 152 SBP (mmHg): 121 DBP (mmHg): 63 METS: --- Stage: STAGE 3 Duration (min): 1 min : 0 sec Speed (mph): 3.4 Grade (%): 14 HR (bpm): 158 SBP (mmHg): 135 DBP (mmHg): 65 METS: --- Stage: STAGE 3 Duration (min): 1 min : 41 sec Speed (mph): 3.4 Grade (%): 14 HR (bpm): 160 SBP (mmHg): 135 DBP (mmHg): 65 METS: --- Stage: RECOVERY Duration (min): 0 min : 18 sec Speed (mph): 1.5 Grade (%): 0 HR (bpm): 154 SBP (mmHg): 135 DBP (mmHg): 65 METS: --- Stage: RECOVERY Duration (min): 1 min : 18 sec Speed (mph): 0.0 Grade (%): 0 HR (bpm): 102 SBP (mmHg): 135 DBP (mmHg): 65 METS: --- Stage: RECOVERY Duration (min): 2 min : 18 sec Speed (mph): 0.0 Grade (%): 0 HR (bpm): 82 SBP (mmHg): 135 DBP (mmHg): 65 METS: --- Stage: RECOVERY Duration (min): 3 min : 18 sec Speed (mph): 0.0 Grade (%): 0 HR (bpm): 84 SBP (mmHg): 122
== END 2023-12-29 10:33 | disposition home or self-care (01) ==
PROVIDERS: PCP Family Medicine
DX: R07.89 Other chest pain (principal)
CPT/HCPCS: 93017

== ENCOUNTER 2024-01-03 06:37 | Emergency (ER) | payer OTHER, SELFPAY ==
[2024-01-03] VITALS (25 sets, daily range): BP systolic 101–115; BP diastolic 57–72; PULSE 79–118; RESP 13–23; TEMP 36.2–36.9; O2SAT 97–100
--- NOTE | ~2024-01-03 | XR_ITS ---
EXAMINATION: XR chest 2V DATE: 01/03/2024 07:55 INDICATION: Shortness of breath and cough. TECHNIQUE: Frontal and lateral views of the chest were obtained. COMPARISON: Chest 2 views 06/29/2020 FINDINGS: There is no pneumonia, pleural effusion, or pneumothorax. The heart size is normal. IMPRESSION: 1. No acute cardiopulmonary disease. Reviewed, dictated and finalized at location A.
--- NOTE | 2024-01-03 07:02 | ECG_ITS ---
Test Date: 2024-01-03 07:09:30 Measurements Intervals [place] Rate: 83 P: 65 [place]: 157 QRS: 34 QRSD: 88 T: 45 QT: 353 QTc: 416 Interpretive Statements SINUS RHYTHM NORMAL ECG No previous ECG available for comparison Electronically Signed On 01-03-2024 13:14:43 CDT by Hussein Robertson M.D.
--- NOTE | 2024-01-03 07:12 | ED_ITS ---
HPI - General Adult General Chief complaint: Shortness of Breath/Dyspnea Stated complaint: sob, cp Time Seen by Provider: 01/03/24 07:03 History of Present Illness HPI narrative: patient is a 38-year-old female who presents ER with cough. Ongoing over last couple of days. Her son has had an illness that started as a GI illness for developing cough. She discovered that pneumonia was going around school and was concerned she may have contracted it. Cough is dry. No reported fevers. No chest pain outside when she coughs. Related Data Home Medications Medication Instructions Recorded Confirmed diazepam 5 mg tablet 5 mg PO BID 04/03/20 01/27/21 amitriptyline 25 mg tablet 25 mg PO HS 01/27/21 01/27/21 Allergies Allergy/AdvReac Type Severity Reaction Status Date / Time sertraline Allergy Severe Hives Verified 01/03/24 06:46 azithromycin AdvReac Unknown Nausea Verified 01/03/24 06:46 cyclobenzaprine AdvReac Unknown Nausea Verified 01/03/24 06:46 Review of Systems Review of Systems: All systems reviewed & are unremarkable except as noted in HPI and below Constitutional: Constitutional: Reports no additional constitutional complaints ENT: Reports system reviewed and no additional complaints, except as doc umented Cardiovascular: Cardiovascular: Reports no additional cardiovascular complaints Respiratory: Respiratory: Reports no additional respiratory complaints [facility] Past Medical History Medical History (Updated 01/03/24 @ 09:16 by Yosef Lopez MD) Healthy female adult Social History Social History Smoking end date: 03/10/10 Alcohol intake: never Gender identity (if verbalized by the patient): Female Exam Narrative: GENERAL: Well-appearing, well-nourished, and in no acute distress. HEAD: Normocephalic, atraumatic. ENT: Mucous membranes moist. CHEST: Clear to auscultation. No respiratory distress. HEART: Regular rate and rhythm. Normal peripheral pulses. EXTREMITIES: Normal range of motion. No edema. SKIN: Warm, dry, no rash. NEURO: Alert and oriented x3. PSYCH: Normal mood and affect. Course Vital Signs Vital signs: Vital Signs Temperature 97.1 F L 01/03/24 06:47 Pulse Rate 114 H 01/03/24 06:47 Respiratory Rate 15 01/03/24 06:47 Blood Pressure 114/61 01/03/24 06:47 Pulse Oximetry 100 01/03/24 06:47 Oxygen Delivery Room Air 01/03/24 06:47 Temperature 97.1 F L 01/03/24 06:47 Pulse Rate 89 01/03/24 08:15 Respiratory Rate 16 01/03/24 08:15 Blood Pressure 113/71 01/03/24 07:19 Pulse Oximetry 100 01/03/24 08:10 Oxygen Delivery Room Air 01/03/24 08:10 Fraction of Inspired Oxygen 21 01/03/24 08:10 Medical Decision Making Vital Signs Vital Signs: Vital Signs Temperature 97.1 F L 01/03/24 06:47 Pulse Rate 114 H 01/03/24 06:47 Respiratory Rate 15 01/03/24 06:47 Blood Pressure 114/61 01/03/24 06:47 Pulse Oximetry 100 01/03/24 06:47 Oxygen Delivery Room Air 01/03/24 06:47 Temperature 97.1 F L 01/03/24 06:47 Pulse Rate 89 01/03/24 08:15 Respiratory Rate 16 01/03/24 08:15 Blood Pressure 113/71 01/03/24 07:19 Pulse Oximetry 100 01/03/24 08:10 Oxygen Delivery Room Air 01/03/24 08:10 Fraction of Inspired Oxygen 21 01/03/24 08:10 Lab Data 01/03/24 07:11 01/03/24 07:11 Labs: Lab Results 01/03/24 01/03/24 Range/Units 07:11 07:22 WBC 7.6 (4.5-10.0) K/mm3 RBC 4.38 (4.2-5.4) M/mm3 Hgb 13.0 (12.0-15.0) g/dL Hct 39.3 (37.0-47.0) % MCV 89.7 (80-100) fl MCH 29.7 (26-34) pg MCHC 33.1 (32-36) g/dl RDW 12.2 (11.5-14.5) % Plt Count 175 (150-375) k/mm3 MPV 11.0 H (7.4-10.4) fl Immature Gran % (Auto) 0.5 (0-0.5) % Neut % (Auto) 83.9 H (45.5-73.1) % Lymph % (Auto) 9.6 L (18.3-44.2) % Dougherty % (Auto) 4.5 (2.6-8.5) % Eos % (Auto) 1.2 (0-4.4) % Baso % (Auto) 0.3 (0.2-1.2) % Lymph # (Auto) 0.73 L (0.9-3.2) K/mm3 Dougherty # (Auto) 0.3 (0.1-0.6) K/mm3 Eos # (Auto) 0.1 (0-0.3) K/mm3 Baso # (Auto) 0.0 (0.0-0.1) K/mm3 Abs Immat Gran (auto) 0.04 H (0.00-0.031) K/mm3 Absolute Neuts (auto) 6.4 (1.3-6.7) K/mm3 Absolute Nucleated RBC 0.000 (0.0-0.012) K/mm3 Nucleated RBC % 0.0 (0.0-0.2) % Sodium 139 (137-145) mmol/L Potassium 3.9 (3.4-5.0) mmol/L Chloride 103 (98-107) mmol/L Carbon Dioxide 24 (22-30) mmol/L Anion Gap 12 (4-12) mmol/L BUN 13 D (7-17) mg/dL Creatinine 0.60 L (0.7-1.0) mg/dL Estim Creat Clear Calc Not Reportable Estimated GFR > 60 (59 - ) Glucose 107 (65-110) mg/dL Calcium 9.2 (8.4-10.2) mg/dL Total Bilirubin 0.7 (0.2-1.3) mg/dL AST 20 (14-36) U/L ALT 16 (6-35) U/L Alkaline Phosphatase 47 (38-126) U/L Total Protein 8.0 (6.3-8.2) g/dL Albumin 4.3 (3.5-5.1) g/dL Influenza A (RT-PCR) Negative (Negative) Influenza B (RT-PCR) Negative (Negative) RSV (RT-PCR) Negative (Negative) SARS-CoV-2 RNA (RT-PCR) Positive A (Negative) Imaging Data Radiologist's impression: ITS Impressions Chest X-Ray 01/03/24 07:57 IMPRESSION: 1. No acute cardiopulmonary disease. ECG Data EKG #1: ECG completion date: 01/03/24 ECG completion time: 07:09 EKG Interpretation: normal rate (83), sinus rhythm, no ectopy, normal QRS, normal QT and NL axis Discharge Plan Discharge Clinical Impression: COVID Patient Disposition: Home, Self-Care Condition: Stable Instructions: COVID-19 (Coronavirus Disease 2019) (ED) Additional Instructions: As discussed you have a viral illness. Unfortunately there are no specific medications we can give you to make the illness end faster. Antibiotics do not work for viral illnesses. However, you can take Acetaminophen or Ibuprofen to help with fevers and pain. Stay well hydrated and rested. Return to the emergency department if your fevers and chills continue to worse after 5 days, if you develop worsening cough with thick sputum, or are unable to stay hydrated. Contact your primary care provider in the next few days for a re-evaluation and to make sure your symptoms are improving. Prescriptions: No Action diazepam 5 mg tablet 5 mg PO BID amitriptyline 25 mg tablet 25 mg PO HS ibuprofen 800 mg tablet 800 mg PO TID 7 Days Qty: 21 0RF methocarbamol 750 mg tablet 1,500 mg PO TID PRN (Reason: muscle spasms) 7 Days Qty: 42 0RF naproxen 500 mg tablet 500 mg PO BID PRN (Reason: pain) 7 Days Qty: 14 0RF hydrocodone-acetaminophen 5-325 mg tablet 1 tablet PO Q8H PRN (Reason: pain) Qty: 7 0RF ondansetron 4 mg tablet,disintegrating 4 mg PO Q8H PRN (Reason: nausea and vomiting) Qty: 7 0RF amoxicillin-pot clavulanate 875-125 mg tablet 1 tablet PO Q12H Qty: 10 0RF oxycodone-acetaminophen [Endocet] 5-325 mg tablet 1 tablet PO Q8H PRN (Reason: pain, severe) Qty: 9 0RF Follow-up/Referrals: Sonya,Bishnu Collins MD [Primary Care Provider] - 1 Week
[2024-01-03 07:20] LABS: Basophils Percent Auto 0.3 % (0.2-1.2); Eosinophils Absolute Auto 0.1 K/mm3 (0-0.3); Eosinophils Percent Auto 1.2 % (0-4.4); Hematocrit 39.3 % (37.0-47.0); Immature Granulocyte Absolute 0.04 K/mm3 (0.00-0.031); Immature Granulocyte Percent A 0.5 % (0-0.5); Lymphocytes Absolute Auto 0.73 K/mm3 (0.9-3.2); Lymphocytes Percent Auto 9.6 % (18.3-44.2); Mean Corpuscular HGB Conc 33.1 g/dl (32-36); Mean Corpuscular Hemoglobin 29.7 pg (26-34); Mean Corpuscular Volume 89.7 fl (80-100); Monocytes Absolute Auto 0.3 K/mm3 (0.1-0.6); Monocytes Percent Auto 4.5 % (2.6-8.5); Neutrophils Absolute Auto 6.4 K/mm3 (1.3-6.7); Neutrophils Percent Auto 83.9 % (45.5-73.1); Platelet Count Result 175 k/mm3 (150-375); Red Blood Count 4.38 M/mm3 (4.2-5.4); Red Cell Distribution Width 12.2 % (11.5-14.5); White Blood Count 7.6 K/mm3 (4.5-10.0)
[2024-01-03 07:31] LABS: Alanine Aminotransferase 16 U/L (6-35); Albumin Level 4.3 g/dL (3.5-5.1); Alkaline Phosphatase 47 U/L (38-126); Anion Gap 12 mmol/L (4-12); Aspartate Amino Transferase 20 U/L (14-36); Bilirubin,Total 0.7 mg/dL (0.2-1.3); Blood Urea Nitrogen 13 mg/dL (7-17); Calcium 9.2 mg/dL (8.4-10.2); Carbon Dioxide 24 mmol/L (22-30); Chloride 103 mmol/L (98-107); Estimated Glomerular Filt Rate > 60; Glucose 107 mg/dL (65-110); Potassium 3.9 mmol/L (3.4-5.0); Sodium 139 mmol/L (137-145)
[2024-01-03 08:01] LABS: Influenza A QL RT-PCR Negative (Negative); Influenza B QL RT-PCR Negative (Negative); RSV RNA, RT-PCR Negative (Negative); SARS-CoV-2 RNA PCR Positive (Negative)
[2024-01-03] MEDS: IPRATROPIUM 0.5 MG/ALBUTEROL SULFATE 2.5 MG AMPUL.NEB 3 ML INHALATION (08:10)
== END 2024-01-03 09:26 | disposition home or self-care (01) ==
PROVIDERS: Emergency Medicine; Emergency Provider Emergency Medicine; PCP Family Medicine
DX: U07.1 COVID-19 (principal)
CPT/HCPCS: 36415; 71046; 80053; 85025; 87637; 93005; 94640; 99284

== ENCOUNTER 2024-02-13 16:14 | Outpatient (CLI) | payer OTHER, SELFPAY ==
--- NOTE | ~2024-02-13 | US_ITS ---
EXAMINATION: US soft tissue head and neck DATE: 02/13/2024 16:55 INDICATION: Neck mass. TECHNIQUE: Multiple grayscale and Doppler ultrasound images of the head and neck were obtained. COMPARISON: None FINDINGS: There is no abnormal mass or lymphadenopathy in the patient's area of concern in left neck. IMPRESSION: 1. No abnormal mass or lymphadenopathy in the patient's area of concern in left neck. Reviewed, dictated and finalized at location A. IGURATION MANAGEMENT MANAGER
== END 2024-02-13 16:15 | disposition home or self-care (01) ==
PROVIDERS: PCP Family Medicine; Visit Provider Family Medicine
DX: R22.1 Localized swelling, mass and lump, neck (principal)
CPT/HCPCS: 76536

== ENCOUNTER 2024-07-02 16:11 | Outpatient (CLI) | payer OTHER, SELFPAY ==
--- NOTE | ~2024-07-02 | CT_ITS ---
CT soft tissue neck wo con Ordering provider: Bishnu Hassan, History: 38 years Female with . Recurrent sinus infections . Comparison: None. Technique: CT soft tissues neck was performed without contrast. . Automated exposure control and ite rative reconstruction technique were employed. The dose-length product was 423.51 mGy-cm. Findings: LOWER HEAD: The visualized brain parenchyma, optic globes/orbits and mastoids are normal. The visua lized paranasal sinuses are well aerated. SALIVARY GLANDS: Normal. THYROID: Normal. SUPRAHYOID DEEP SPACES: Normal. Lymph nodes are seen in both parapharyngeal spaces with the largest o n the right side measuring 9 mm and on the left 1.1 cm. Small lymph nodes seen in the posterior trian gles. CAROTID ARTERIES: Normal. JUGULAR VEINS: Normal. TONSILS: Normal. ORAL CAVITY: Partially obscured by dental amalgam but normal as visualized. PHARYNX, LARYNX AND TRACHEA: Patent and normal. No prevertebral soft tissue swelling. SUPERFICIAL SOFT TISSUES: Normal. No lymphadenopathy or neck mass. THORACIC INLET/VISUALIZED UPPER CHEST: Dependent atelectatic changes. SKELETAL: Normal. IMPRESSION: 1. No definite abnormality seen. Reviewed, dictated and finalized at location A.
--- NOTE | ~2024-07-02 | CT_ITS ---
CT sinus wo con Ordering provider: Bishnu Hassan, History: . Recurrent sinus infections . Comparison: None. Technique: Thin slice Scans CT of the paranasal sinuses was performed with coronal and sagittal refor matted images. No IV contrast. . Automated exposure control and iterative reconstruction technique w ere employed. The dose-length product was 210.88 mGy-cm. Findings: NASAL SEPTUM: Mild right nasal septal deviation. OSTEOMEATAL UNITS: Bilaterally patent. NASAL TURBINATES AND NASOPHARYNX: Normal. PARANASAL SINUSES: Well aerated. VISUALIZED MASTOIDS: Normal as visualized. BONES: Normal. SUPERFICIAL SOFT TISSUES/VISUALIZED BRAIN PARENCHYMA: Normal. IMPRESSION: Mild right nasal septal deviation. Other appearances are unremarkable. Reviewed, dictated and finalized at location A.
--- OUTSIDE RECORDS SUMMARY | 2024-07-02 16:16 | XMS_ITS | Referral Summary ---
Author Organization [address] Address [address] [place] [id number] Care Team Providers Care Gang Knife Fish Chopper Name Role Phone Bishnu Hassan MD Primary Care Provider [phone] Encounters Date Type Department Care Team Description 06/16/2024 8:30 AM CDT Office Visit [facility] at [address] [phone] Patt Wagoner PA Facial pain (Primary Dx); Other migraine without status migrainosus, not intractable 06/09/2024 8:15 AM CDT Office Visit [facility] at [address] [phone] Bishnu Hassan MD Neck mass (Primary Dx) 05/10/2024 Orders Only [facility] [address] [id number] Bishnu Hassan MD Neck mass; Arnold-Chiari malformation, type II (HCC) 05/09/2024 7:45 AM CASE MONITOR Telemedicine [facility] [address] [place] [phone] Dea Richardson NP Dental abscess (Primary Dx) 05/09/2024 Patient Self-Triage [facility] [address] [place] [address] Mychart, Generic Provider from Last 3 Months Allergies Active Allergy Reactions Criticality Noted Date Comments Azithromycin Hives Medium 06/16/2014 Hives Cyclobenzaprine Unknown Low 10/17/2017 Medications famotidine (PEPCID) 20 mg tabletIndicatio ns:Gastroesopha geal reflux disease without esophagitis Take 1 tablet (20 mg total) by mouth 2 (two) times a day 60 tablet 11 01/22/20 24 025 Active diazePAM (VALIUM) 5 mg tabletIndicatio ns:MICHAEL (generalized anxiety disorder) Take 1 tablet (5 mg total) by mouth nightly as needed for anxiety 30 tablet 01/26/20 24 Active ibuprofen 200 mg tab/capIndicati ons:Anti-inflam matory,Pain Take by mouth every 6 (six) hours as needed for pain Active gabapentin (NEURONTIN) 100 mg capsule Take 1 capsule (100 mg total) by mouth 2 (two) times a day as needed (pain) 60 capsule 06/18/19 25 Active ubrogepant (Ubrelvy) 100 mg tablet Take 1 tablet (100 mg total) by mouth once as needed for migraine May repeat dose once in 2 hours if no relief. Do not exceed 2 doses in 24 hours. 2 tablet 07/03/19 24 025 Discontinued lidocaine viscous (XYLOCAINE) 2 % solution Swish and spit 5ml around painful tooth four times daily as needed for tooth pain. 100 mL 03/02/20 24 025 Discontinued Active Problems Problem Noted Date Diagnosed Date Gastroesophageal reflux disease without esophagi tis 01/22/2024 Fatigue 01/22/2024 Syncope and collapse 09/05/2023 Other chest pain 09/05/2023 Viral upper respiratory tract infection 02/12/20 23 Assessment & Plan (02/11/2023 1:32 PM CASE MONITOR): Afebrile, BP normal, HR wnl - associated cough. Physical exam no wheezes, no rales, no sweating. Patient self medicated with old Antibiotics script Augmentin from previous tooth infection - has been taking them BID x 7 d duration - no improvement in symptoms - sick contact - flu a/b/covid test in office -- NEGATIVE x 3 - supportive care, rest, liquids recommended Arnold-Chiari malformation, type II 01/01/2023 Encounter for medical examination to establish c are 07/05/2022 Assessment & Plan (07/05/2022 3:17 PM CDT): A(n) initial well visit to establish care has been performed today. Sheila Hamlin is not up to date on screening tests. She is in need of Cholesterol screening and Cervical cancer screening. She is not up to date on needed preventative vaccinations; She is in need of Tdap/Td and Pneumonia (Prevnar-13 or Pneumovax-23). We discussed healthy lifestyle habits, educational material has been given. Medications reviewed, changes documented as per the medical record and discussed with patient along with risks vs benefits. Awaiting labs Will plan on daily anxiety medication, to see if that covers anxiety without possible side effects, risk from benzodiazepines Return in 1 month Furuncle 03/26/2017 Overweight with body mass index (BMI) 25.0-29.9 03/26/2017 Cervical low risk human jasiel llomavirus (HPV) DNA test positive 12/22/2014 Syphilis in female 12/22/2014 Overview (01/01/2023): Encntr screen for infections w sexl mode of transmiss;Practice ID: [id number] Venereal disease screening 04/05/2014 At risk for sexually transmi tted disease due to unprotected sex 04/04/2014 Overview (01/01/2023): Contact with or exposure to venereal diseases;Practice ID: [id number] Alopecia 03/18/2014 Tobacco dependence syndrome 10/27/2013 Major depressive disorder, single episode, mild 06/24/2013 Vitamin D deficiency 12/15/2012 Generalized anxiety disorder 10/15/2012 Chest pain 10/15/2012 Anxiety state 06/17/2012 Depressive disorder 06/17/2012 Retained placenta, without hemorrhage 01/08/2012 Overview (01/01/2023): Retained placenta without hemorrhage, unspecified as to episode of care;Recorded Elsewhere: No Location: [facility] Source: EHR Chronic: Y Practice ID: [id number] Billable Time: 07:05:00 PM 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 Overview (01/01/2023): coagulation defects;Recorded Elsewhere: No Location: [facility] Source: EHR Chronic: N Practice ID: [id number] Billable Time: 02:30:00 PM Delivery normal 12/19/2011 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 Never 02/11/2023 Q2: How many drinks containi ng alcohol do you have on a typical day when you are drinking? Patient does not drink Q3: How often do you have si x or more drinks on one occasion? Never 02/11/2023 PHQ-2 Answer Date Recorded PHQ-2 Total Score (If total score is 3 or more points, staff should administer the PHQ-9) 0 01/22/2024 Comments No Sex and Gender Information Value Date Recorded Sex Assigned at Not on file Legal Sex Female 1:59 AM CASE MONITOR Gender Identity Female 03/30/2022 11:55 AM CASE MONITOR Sexual Orientation Not on file Last Filed Vital Signs Vital Sign Reading Time Taken Comments Blood Pressure 102/67 06/16/2024 8:40 AM CDT Pulse 66 06/16/2024 8:40 AM CDT Temperature 36.8 C (98.3 F) 06/16/2024 8:40 AM CDT Respiratory Rate 20 06/16/2024 8:40 AM CDT Oxygen Saturation 98% 06/16/2024 8:40 AM CDT Inhaled Oxygen Concentration - - Weight 88 kg (194 lb) 06/16/2024 8:40 AM CDT Height 170.2 cm (5' 7 ) 06/16/2024 8:40 AM CDT Body Mass Index 30.38 06/16/2024 8:40 AM CDT Plan of Treatment Not on file Insurance [facility] Care Teams Gang Knife Fish Chopper Relationship Specialty Start Date End Date Bishnu Hassan MD [facility] DARA [address] [address] PCP - General Family Medicine 07/04/22
--- OUTSIDE RECORDS SUMMARY | 2024-07-02 16:16 | XMS_ITS | Clinical Summary ---
Author Organization [address] Address [address] [place] [id number] Care Team Providers Care Fish Conservationist Name Role Phone Bishnu Hassan MD Primary Care Provider [phone] Allergies Active Allergy Reactions Criticality Noted Date Comments Azithromycin Hives Medium 06/16/2014 Hives Cyclobenzaprine Unknown Low 10/17/2017 Medications famotidine (PEPCID) 20 mg tabletIndicatio ns:Gastroesopha geal reflux disease without esophagitis Take 1 tablet (20 mg total) by mouth 2 (two) times a day 60 tablet 01/22/20 24 025 Active diazePAM (VALIUM) 5 [...] as needed for tooth pain. 100 mL 12/24/20 24 025 Discontinued Active Problems Problem Noted Date Diagnosed Date Gastroesophageal reflux disease without esophagi tis 01/22/2024 Fatigue 01/22/2024 Syncope and collapse 09/05/2023 Other chest pain 09/05/2023 Viral upper respiratory tract infection 02/12/20 Assessment & Plan (02/11/2023 1:32 PM LAP WINDER): Afebrile, BP normal, HR wnl - associated [...] to episode of care;Recorded Elsewhere: No Location: [facility] Source: EHR Chronic: Y Practice ID: [id number] Billable Time: 07:05:00 PM 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 Overview (01/01/2023): coagulation defects;Recorded Elsewhere: No Location: [facility] Source: EHR Chronic: N Practice ID: [id number] Billable Time: 02:30:00 PM Delivery normal 12/19/2011 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 Amenorrhea 04/22/2011 Encounters Date Type Department Care Team Description 06/16/2024 8:30 AM CDT Office Visit [facility] at [address] [phone] Patt Wagoner PA Facial pain (Primary Dx); Other migraine without status migrainosus, not intractable 06/09/2024 8:15 AM CDT Office Visit [facility] at [address] [phone] Bishnu Hassan MD Neck mass (Primary Dx) 05/10/2024 Orders Only [facility] [address] [phone] Bishnu Hassan MD Neck mass; Arnold-Chiari malformation, type II (HCC) 05/09/2024 7:45 AM LAP WINDER Telemedicine [address] [phone] Dea Richardson NP Dental abscess (Primary Dx) 05/09/2024 Patient Self-T[address] [facility] [place] [address] Mychart, Generic Provider from Last 3 Months Immunizations Immunization Administration Dates Next Due Influenza, Unspecified 03/10/2022(Deferr ed: Patient Refused),03/10/2021(Deferred: Patient Refused) Surgical History Surgery Date Site/Laterality Comments PARTIAL HYSTERECTOMY TYMPANOPLASTY HYSTERECTOMY 2012 Medical History Medical History Date Comments Anxiety Arnold-Chiari malformation (HCC) Migraine Arnold-Chiari malformation (HCC) Family History Medical History Relation Name Comments Cerebral palsy Brother 1 defects Brother 2 Lambert Cerebral palsy Brother 2 Lambert Developmental delay Brother 2 Lamebrt Learning disabilities Brother 2 Lambert Stroke Brother 2 Lambert in utero Asthma Brother 3 Charan Stroke Brother 3 Charan Substance Abuse Father estranged No Known Problems Maternal Grandfather Breast cancer Maternal Grandmother Glen Cancer Maternal Grandmother Glen Skin cancer Maternal Grandmother Glen Cancer Mother Chelly Cervical cancer Mother Chelly No Known Problems Paternal Grandfather No Known Problems Paternal Grandmother Neuropathy Sister adopted out Asthma Son 1 Napoleon [email or web address] Son 1 Napoleon Developmental delay Son 2 Sage Learning disabilities Son 2 Sage Relation Name Status Comments Brother 1 Alive Brother 2 Lambert Alive Brother 3 Charan Father Alive Maternal Grandfather Alive Maternal Grandmother Glen Alive Mother Chelly Alive Paternal Grandfather Paternal Grandmother Alive Sister Alive Son 1 Napoleon Son 2 Sage Social History Tobacco Use Types Packs/Day Years [...] on file Legal Sex Female 1:59 AM LAP WINDER Gender Identity Female 03/30/2022 11:55 AM LAP WINDER Sexual Orientation Not on file Obstetrics History Last Filed Vital Signs Vital Sign Reading [...] 06/16/2024 8:40 AM CDT Plan of Treatment Health Maintenance Due Date Last Done Comments Hepatitis C Screening 1984 DTaP/Tdap/Td Vaccine (1 - Tdap) 08/08/1995 Hepatitis B Screening 2002 Regular Well Visit/Exam 18-64 07/05/2023 07/04/2022 Depression Screening 01/21/2025 01/22/2024, 09/30/2023, 07/03/2023, Additional history exists Varicella Vaccines (1 of 2 - 13+ 2-dose series) 01/25/2025 Postponed from 1997 (Patient declined, but will receive in the future) Cervical Cancer Screening Discontinued 05/13/2022 HPV Vaccines Aged Out No longer eligi ble based on patient's age to complete this topic Influenza Vaccine Discontinued Pneumococcal vaccine <65 Discontinued Insurance [facility] Care Teams Fish Conservationist Relationship Specialty Start Date End Date Bishnu Hassan MD [address] [place] [address] PCP - General Family Medicine 07/04/22
--- OUTSIDE RECORDS SUMMARY | 2024-07-02 16:16 | XMS_ITS | CONTINUITY OF CARE DOCUMENT ---
Author Name vicki cohen Address Unknown Organization [facility] Address [address] [address] [facility] [address] [place] [address] Phone [phone] Care Team Providers Care Operator And Truck Driver Name Role Phone Nitesh Izquierdo MD Unavailable SABRA GABRIEL MD Unavailable [phone] SABRA GABRIEL MD Unavailable [phone] PROBLEMS Condition Status Date Provider Notes Family History of CVA or Stroke: active ? Nancy Izquierdo MD Family History of Sudden Car diac : active ? Nitesh Izquierdo MD Chest pain active Nitesh Izquierdo MD Chest pain-type to be determined active Nancy Izquierdo MD Anxiety active ? Nitesh Izquierdo MD (His tory of) ENCOUNTERS Date Type Provider Location Encounter Diag nosis - In-person encounter Office Visit Nitesh Izquierdo MD [facility] - In-person encounter Office Visit Nitesh Izquierdo MD [facility] Family History of CVA or Stroke:Family History of Sudden Cardiac :Chest painChest pain-type to be determinedAnxiety VITAL SIGNS Date Observation Value Provider Body Mass Index (Ratio) 25.85 kg/m2 Bhaskar Izquierdo MD Body Mass Index (Ratio) 26.62 kg/m2 Axel narvaez Martina blood pressure, diastolic 66 mm[Hg] Da sabine Marcio blood pressure, systolic 100 mm[Hg] Dac ia Marcio oxygen saturation, oximetry 97 % Roopa Marcio respiratory rate E&M 16 /min Roopa V oss pulse rate 90 /min Roopa Marcio weight E&M 170 [lb_av] Roopa Marcio height E&M 67 [in_i] Roopa Marcio blood pressure, diastolic 70 mm[Hg] Cy ntnile Talamantes blood pressure, systolic 110 mm[Hg] Fabiana cedrick Talamantes blood pressure, cuff size large Ke rri Gloria blood pressure, diastolic 62 mm[Hg] Ke rri Gloria blood pressure, systolic 102 mm[Hg] Ar Castro oxygen saturation, oximetry 98 % Migdalia Castro respiratory rate E&M 18 /min Migdalia vera pulse rate 97 /min Migdalia Galvan lder weight E&M 170 [lb_av] Migdalia Galvan lder height E&M 68 [in_i] Migdalia Galvan lder ALLERGIES Allergy Name Onset Date Reaction Criticality Status Z PACK Low Criticality active FLEXERIL Low Criticality active HISTORY OF MEDICATION USE Medication Status Instructions Dates Provider Indications Com ments AMLODIPINE BESYLATE 5 MG ORAL TABLET active one tablet daily at night Nitesh Izquierdo MD 8 HOUR ARTHRITIS PAIN RELIEVER TABLET EXTENDED RELEASE active as needed Migdalia Castro EXCEDRIN PM TABLET active as needed Migdalia Castro AMITRIPTYLINE HCL 50 MG ORAL TABLET active take one pill at night Migdalia Castro DIAZEPAM 5 MG ORAL TABLET active take one pill twice a day Migdalia Castro SOCIAL HISTORY Date Observation Value Provider social history reviewed E&M revi ewed - no changes required Nitesh Izquierdo MD number of grandchildren Nitesh Mack social history reviewed E&M revi ewed - no changes required Alcon Mack social history E&M S moking History: P atient currently smokes every day. Alcon Mack smoking status Current every day smoker D heidi Marcio smoking status Current every day smoker C alivia Talamantes number of years as a smoker 15 a Migdalia Gloria smoking history, tot al pack/day 1 ppd Migdalia Torocasandra cigarette use yes Migdalia Garcia elder smoking status Current every day smoker K errpaolo Gloria FUNCTIONAL STATUS Date Observation Value Provider periodic limb movement index absent (0) Salvador Hardwick MD FAMILY HISTORY Family Member Condition Father Negative FH of Coron kacie Artery Disease Mother Negative FH of Coron kacie Artery Disease Full Brother Family History of Solorio dden Cardiac : Full Brother Family History of CV A or Stroke: INSURANCE PROVIDERS Payer name Policy type / Coverage type [place] [employer] [id number] MEDICA[employer] (2) Medicaid [id number] ADVANCE DIRECTIVES Name Date DISCUSSED - NO DECISION MADE TREATMENT PLAN Date Name Performer cards New Patient Nitesh turcios MD cards New Patient Nitesh turcios MD Electrophysiology fo llow up:Echo 10/20/17 shows EF 60% with mild MR and TR. Treadmill stress test 10/20/17 normal - no evidence of ischemia by ST analysis. Alcon Mack cards New Patient : O rders: 9 9244 MOD C omplex ([id number]) S chedule Followup (*) Nitesh Izquierdo MD cards New Patient : O rders: 9 9244 MOD C omplex (CPT-19207) C omplete Echo (CPT-46159) E KG (CPT-99087) S TR - Routine (CPT-86937) S chedule Followup (*) Nitesh Izquierdo MD Date Name STR - Routine Complete Echo HISTORY OF PROCEDURES Procedure Date Procedure Name Provider Procedure Notes S tatus Schedule Followup Nitesh Izquierdo MD in 6 mo completed EKG Nitesh Izquierdo MD comp leted Stress EKG Salvador Hardwick MD completed Schedule Followup Nitesh Izquierdo MD completed EKG Nitesh Izquierdo MD comp leted
--- OUTSIDE RECORDS SUMMARY | 2024-07-02 16:16 | XMS_ITS | Data Portability ---
Author Organization [facility] Address [address] [place] [address] [place] [address] Assessment Encounter Date Assessment Date Assessment LastModified by Organization Details LastModified Time 05/13/2022 05/13/2022 Annual gynecological exam performed. Patient will come back in a year unless there are new symptoms. [email or web address] Not available 05/13/2022 12:50:43 01/26/2024 01/26/2024 Annual gynecological exam performed. Patient will come back in a year unless there are new symptoms. [email or web address] Not available 01/26/2024 13:10:52 Plan of Treatment Reminders Order Date Submit Date Provider Last Modified By Organization Details Last Modified Time Details Appointments None recorded. Lab None recorded. Referral None recorded. Procedures None recorded. Surgeries None recorded. Imaging MAMMO, diagnostic , digital, bilateral 2023 024 [facility], [address], [place], [address], 05:00:50 Medication Orders None recorded. Patient TargetsNo targets recorded. Patient InstructionsNo instructions recorded. Reason for Referral None Reported. Results Created Date Observation Date Name Description Value Unit Range Abnormal Flag Note LastModifiedBy Organization Detail LastModifiedTime 05/14/1905/13/2022 IMAGE GUIDE D PAP AND HPV REGAR DLESS image guided Pap, HPV regardless of Pap result SEE RESULT S BELOW CASE REPOR T: Cytol ogy Gynec ologi jessenia Repor t Case: [id number] Autho kalani azevedo Provi jayden: Catina Chaparro, [employer] Colle cted: 05/13 1504 Order ing Locat ion: [place] Patho logtracey Recei sanjiv: 05/14 0159 First Scree n: Gil tolliver, Mindy oleary, CT Speci men: Scree lizzy Pap - Image d, Vagin a STATE MENT OF ADEQU ACY: Satis facto ry for evalu ation FINAL DIAGN OSIS: Negat mitchel for Intra epith elial Lesio n or Forrest rubi (NIL) . Shift in taryn sugge stive of bacte rial vagin osis. Elect denton molina jason d by Gil tolliver, Mindy oleary, CT on 023 at 3:02 PM ----- ----- ----- ----- ----- ----- ----- ----- ----- ----- ----- ----- ----- ----- ----- ----- ----- ---- HPV RESUL TS: HPV mRNA E6/E7 : No HPV mRNA Detec petrona NOTE: This high risk HPV mRNA assay detec ts fourt een high- risk HPV types (16, 18, 31, 33, 35, 39, 45, 51, 52, 56, 58, 59, 66, 68) witho ut diffe renti ation . COMME NT: Note: Slide scree sharmaine manua lly due to rejec tion by the Thinp rep Imagi ng Syste m. CLINI JESSENIA INFOR MATIO N: Menst rual Statu s: Total Hyste recto my LMP (if appli cable ): Clini jessenia Histo ry/Pr eviou s Pap: Type of Neopl mike (if appli cable ): Signi fican t Clini jessenia Findi ngs: Other Histo ry: Hormo lisa (if appli cable ): PAP EDUCA MARTI L NOTE: The Pap Test is a scree lizzy test with an inher ent false negat mitchel rate. Liqui d-bas ed sampl ing may decre ase, but will not elimi tahir, false negat mitchel resul ts. A negat mitchel resul t does not precl ude the prese nce and/o r devel opmen t of disea se, since the prese nce of abnor mal cells in the sampl e depen ds on the locat ion of the lesio n and sampl ing techn ique. Padma nued regul ar scree lizzy is the best metho d of cance r preve ntion . If repor petrona cytol ogic findi ng do not corre late with physi jessenia and/o r histo rical findi ngs, furth er inves tigat ion is recom jessica d, as clini shari porter nted. Not Available [facility] [address], [place], [address], 05/16/2022 16:04:42 Result Notes None recorded. Problems Name Problem SNOMED Code Status Onset Date Resolution Date Notes Provider Name and Address Organization Details Recorded Time Anxiety state 717170894 Active 2012 Anxiety;R ecorded Elsewhere : No Locati on: [facility] So urce: EHR Chron ic: N Practic e ID: [id number] Bill able Time: 03:30:00 PM Not Available [facility] 0 16:51:25 Depressiv e disorder 63157822 Active 2012 Depressio n;Recorde d Elsewhere : No Locati on: [facility] So urce: EHR Chron ic: N Practic e ID: [id number] Bill able Time: 03:30:00 PM Not Available [facility] 0 16:51:25 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 Procedures Surgical History Date Name Laterality Status Provider Name and Address Organization Details Recorded Time 01/26/20 24 Date of Last Pap Smear completed Mary Borges [facility] 01/26/2024 15:44:38 01/29/20 12 total abdominal hysterectomy completed Daxa Ornelas [facility] 05/13/2022 14:21:34 03/10/19 06 LEEP completed Alexia León [facility] 12/09/2023 16:50:38 03/10/19 06 Colposcopy completed Mary Borges [facility] 04/03/2024 15:50:26 03/10/19 00 procedure on ear completed Mary Borges [facility] 01/26/2024 13:18:07 Imaging Results None recorded. Procedure Notes None recorded. Medical Equipment None Reported. Allergies Allergen ID Allergen Name Allergen Category Reaction Reaction Severity Criticality Documentation Date Start Date Code Code System Note Provider Name and Address Organization Details Recorded Time 88390 azithromy sirisha medicatio n Not available Not available Not available 02/25/2020 46849 RxNorm Comme nt: [facility]at [facility]; Not Available [facility] 14:20:43 Medications Name Sig Start Date Stop Date Status Note LastModified by Organization Details LastModified Time clindamyc in HCl 300 mg capsule 05/13 completed Not Available Not Available Not Available hydrocodo ne 5 mg-acetam inophen 325 mg tablet 05/13 completed Not Available Not Available Not Available penicilli n V potassium 500 mg tablet 05/13 completed Not Available Not Available Not Available Metrogel Vaginal 0.75 % (37.5 mg/5 gram) insert 1 applicat orful by vaginal route every day at bedtime for 5 nights 05/13 completed Prescrib ed Elsewher e: No Locat ion: Priscilla greene [facility] odify By: bcrobert santillan DateTime : 03/31/19 11:34:21 AM Not Available Not Available Not Available famotidin e 20 mg tablet active Not Available Not Available Not Available methocarb new 750 mg tablet TAKE 2 TABLETS BY MOUTH THREE TIMES DAILY FOR 7 DAYS NEEDED FOR MUSCLE SPASMS 05/13 completed Not Available Not Available Not Available Xanax 0.25 mg tablet take 1 tablet by oral route 3 times every day 05/13 completed Prescrib ed Elsewher e: Yes Loca tion: Priscilla greene [facility] odify By: may santillan DateTime : 09/21/19 14 10:45:00 AM Not Available Not Available Not Available cephalexi n 500 mg tablet take 1 tablet by oral route every 6 hours 05/13 completed Prescrib ed Elsewher e: No Locat ion: [facility] odify By: rex Avalos er DateTime : 03/27/19 18 10:13:10 AM Not Available Not Available Not Available Vitamin D2 1,250 mcg (50,000 unit) capsule take 1 capsule (49697TP ITS) by oral route every week 09/20 completed Prescrib ed Elsewher e: No Locat ion: [facility] odify By: may santillan DateTime : 10/14/19 12 04:03:28 PM Not Available Not Available Not Available ondansetr on 4 mg disintegr ating tablet 05/13 completed Not Available Not Available Not Available Xanax 1 mg tablet take 1 tablet (1MG) by oral route 3 times every day 06/17 completed Prescrib ed Elsewher e: No Locat ion: [facility] odify By: leslie santillan DateTime : 04/22/19 12 09:15:00 AM Not Available Not Available Not Available naproxen 500 mg tablet TAKE 1 TABLET BY MOUTH TWICE DAILY FOR 7 DAYS NEEDED FOR PAIN 05/13 completed Not Available Not Available Not Available diazepam 5 mg tablet TAKE 1 TABLET BY MOUTH TWICE DAILY active Not Available Not Available No t Available amoxicill in 875 mg-potass ium clavulana te 125 mg tablet TAKE 1 TABLET BY MOUTH TWICE DAILY FOR 5 DAYS 12/08 completed Not Available Not Available Not Available amoxicill in 500 mg-potass ium clavulana te 125 mg tablet TAKE 1 TABLET BY MOUTH TWICE DAILY UNTIL GONE 05/13 completed Not Available Not Available Not Available buspirone 15 mg tablet take 1 tablet (15MG) by oral route 3 times every day 09/20 completed Prescrib ed Elsewher e: No Locat ion: Priscilla [facility] odify By: may santillan DateTime : 06/18/19 13 03:30:00 PM Not Available Not Available Not Available Topamax 15 mg sprinkle capsule take 1 capsule by oral route 2 times every day in the morning and evening 05/13 completed Prescrib ed Elsewher e: Yes Loca tion: Priscilla greene [facility] odify By: alli santillan DateTime : 12/23/19 15 09:30:00 AM Not Available Not Available Not Available Bactrim DS 800 mg-160 mg tablet take 1 tablet by oral route every 12 hours for 10 days 04/04 completed Prescrib ed Elsewher e: No Locat ion: [facility]iscilla greene [facility] odify By: chan givensunter DateTime : 03/26/19 18 02:15:00 PM Not Available Not Available Not Available Mononessa (28) 0.25 mg-35 mcg tablet take 1 tablet by oral route every day 04/22 completed Prescrib ed Elsewher e: Yes Loca tion: Priscilla greene [facility] odify By: nakul Ortizo unter DateTime : 04/20/19 12 03:58:21 PM Not Available Not Available Not Available Triveen-D uo DHA 29 mg-1 mg-400 mg oral pack take 1 by Oral route every day 01/13 completed Prescrib ed Elsewher e: No Locat ion: Priscilla greene [facility] odify By: bijan santillan DateTime : 07/29/19 12 03:14:40 PM Not Available Not Available Not Available Venatal Complete DHA 27 mg-1 mg-430 mg tablet and capsule,d elay releas once daily 01/13 completed Prescrib ed Elsewher e: No Locat ion: Priscilla greene [facility] odify By: bijan santillan DateTime : 04/25/19 12 01:10:16 PM Not Available Not Available Not Available naloxone 4 mg/actuat ion nasal spray CALL 911. SPR CONTENTS OF ONE SPRAYER (0.1ML) INTO ONE NOSTRIL. REPEAT IN 2-3 MIN IF SYMPTOMS OF OPIOID EMERGENC Y PERSIST, ALTERNAT E NOSTRILS 12/08 completed Not Available Not Available Not Available Vitals Date Recorded Body height Body mass index (BMI) Body weight Systolic blood pressure Diastolic blood pressure Provider Name and Address Organization Details Last Updated DateTime 05/13/2022 170.18 cm 27 kg/m2 58893.32 g 107 mm[Hg] 69 mm[Hg] Daxa Ornelas [facility] 3 12:53:24 Date Recorded Body height Body mass index (BMI) Body weight Systolic blood pressure Diastolic blood pressure Provider Name and Address Organization Details Last Updated DateTime 12/09/2023 170.18 cm 29.6 kg/m2 28974.96 g 108 mm[Hg] 75 mm[Hg] Alexia León [facility] 4 16:48:04 Date Recorded Body height Body mass index (BMI) Body weight Systolic blood pressure Diastolic blood pressure Provider Name and Address Organization Details Last Updated DateTime 01/26/2024 170.18 cm 30.5 kg/m2 46929.51 g 105 mm[Hg] 63 mm[Hg] Mary Borges [facility] 4 13:11:40 Social History Question Answer Notes LastModified by Organizat ion Details LastModified Time Tobacco Smoking Status Current Every Day Smoker Daxa Johnson [facility] 05/13/2022 12:57:23 Do You Have An Advance Directive? No [email or web address] Information not available 01/26/2024 What Is Your Level Of Alcohol Consumption? None Information not available 05/13/2022 How Many Years Have You Consumed Alcohol? 0 Information not available 01/26/2024 Are You Blind Or Do You Have Difficulty Seeing? No Information not available 05/13/2022 What Is Your Level Of Caffeine Consumption? Moderate Information not available 05/13/2022 How Much Tobacco Do You Chew? None Information not available 05/13/2022 In The 14 Days Before Symptom Onset, Have You Had Close Contact With A Laboratory-confir med COVID-19 While That Case Was Ill? No Information not available 05/13/2022 In The 14 Days Before Symptom Onset, Have You Had Close Contact With A Person Who Is Under Investigation For COVID-19 While That Person Was Ill? No Information not available 05/13/2022 Have You Been To An Area Known To Be High Risk For COVID-19? No Information not available 05/13/2022 Are You Deaf Or Do You Have Serious Difficulty Hearing? No Information not available 05/13/2022 What Type Of Diet Are You Following? REGULAR Information not available 05/13/2022 What Is The Highest Grade Or Level Of School You Have Completed Or The Highest Degree You Have Received? [id number] Information not available 05/13/2022 What Is Your Occupation? Unemployed Information not available 05/13/2022 Are There Any Guns Present In Your Home? No Information not available 05/13/2022 Do You Use Protection During Sex? No Information not available 05/13/2022 Do You Use Your Seat Belt Or Car Seat Routinely? Yes Information not available 05/13/2022 Do You Have Smoke And Carbon Monoxide Detectors In Your Home? Yes Information not available 05/13/2022 At What Age Did You Start Smoking Tobacco? 14 Information not available 05/13/2022 How Much Tobacco Do You Smoke? No Information not available 01/26/2024 Do You Feel Stressed (tense, Restless, Nervous, Or Anxious, Or Unable To Sleep At Night)? [id number] Information not available 05/13/2022 Do You Use Any Illicit Or Recreational Drugs? Yes Information not available 05/13/2022 Do You Use Sunscreen Routinely? No Information not available 05/13/2022 How Many Years Have You Smoked Tobacco? 9 Information not available 05/13/2022 Have You Used IV Drugs? No Information not available 05/13/2022 Sex: Unknown Functional Status Question Answer Note LastModified by Organizat ion Details LastModified Time Do you have difficulty walking or climbing stairs? No Information not available 05/13/2022 Are you able to walk? YESWOREST Information not available 05/13/2022 Are you able to care for yourself? Yes Information not available 05/13/2022 Do you have difficulty dressing or bathing? No Information not available 05/13/2022 What is your exercise level? None Information not available 05/13/2022 Mental Status None recorded. Family History Relationship Description Onset Age of this Age Resolved Age Notes LastModified by Organization Details LastModified Time Mother Malignant neoplasm of skin [email or web address] Not available 2023 16:49:42 Mother Asthma [email or web address] Not available 04/03/2024 15:48:36 Mother Malignant tumor of cervix [email or web address] Not available 04/03 15:49:51 Maternal Grandmother Malignant neoplasm of skin [email or web address] Not available 2023 16:49:50 Maternal Grandmother Malignant tumor of breast [email or web address] Not available 04/03 15:48:46 Brother Asthma Not availabl e 04/03/2024 15:48:36 Brother Cerebrovascu lar accident [email or web address] Not available 15:49:08 Brother Cerebral palsy [email or web address] Not available 04/03 15:49:42 Brother Seizure disorder [email or web address] Not available 04/03 15:50:04 Maternal Grandfather Malignant tumor of lung Not available 04/03 15:48:55 Notes:Brother: Asthma, Seizu re disoder, Cerebal palsey, Stroke GGF: Cancer, lung Maternal grandmother: Cancer, breast Mother: Asthma, Cancer, cervical Medical History Condition Response Allergies (Food, seasonal, environmental ) N Other N Breast Cancer N Drug/Latex Allergies/Reactions N Blood Transfusion N Lung Disease N Dermatologic Disorders N Defects or Inherited Disease N Breast Problem N Gestational Diabetes N Hematologic disorders N Anesthesia Complications N History of STI N Deep Vein Thrombosis N Polycystic ovary syndrome N Anxiety Disorder Y Autoimmune disease N Arthritis N Polyps N Infertility N History of abnormal pap Y Acid Reflux (GERD) N Cancer Y Varicosities N Stroke N Neurologic/Epilepsy N Endometriosis N High Cholesterol N Fibromyalgia N Headaches N Kidney Disease N Heart Problems N Kidney or Bladder Problems N Thyroid Problems N GI Problems N Eating Disorder N Anemia N Art (IVF or FET) N Psychiatric Illness N Ovarian Cancer N Diabetes N Pulmonary (TB, Asthma) N Hepatitis/Liver Disease N No Past Medical History N Eczema N Urinary Tract Infection N Abuse/Domestic Violence N Asthma N Trauma/Violence N Depression/ depression N Heart Disease N Pre-Eclampsia N Hypertension N Osteoporosis N Thrombophilias N Gynecological History Statement/Question Response Abnormal Pap Yes Date of Last Mammogram Date of LMP 03/24/2010 On BCP's at Conception? N N Was last menstrual period normal Y STIs/STDs N HPV Vaccine N Duration of Flow (days) 5 Current Control Method Hysterectom y Age at First Child 15 Date of Last Colonoscopy Frequency of Cycle (Q days) 5 Sexually Active? Y None Date of DEXA bone scan Age of first menstrual cycle 13 Date of Last Pap Smear 01/26/2024 Sexual Problems? N LMP Approximate N Obstetrics History GPAL:G 5 P 3 0 2 3 Type Value Full Term 3 Spontaneous 2 Living 3 Total 5 Past Encounters Encounter ID Performer Location Encounter Start Date Encounter Closed Date Diagnosis/Indication Diagnosis SNOMED-CT Code Diagnosis ICD10 Code Diagnosis Note [id number] CHAR [facility] [address] [address] 05/13/2022 12:30:41 05/13/2022 18:17:57 Gynecologic examination 83839070 Z01.419 Z11.51 Take Calcium with Vitamin D 1200mg daily if not receiving in daily diet. It is strongly advised to have an annual flu shot and up can obtain at most pharmacies . If you have not had a TDap shot in the last 10 years you should obtain one as well. Discussed with patient & provided with informatio n regarding Gardisil vaccine to prevent the 4 strains for HPV that cause cervical cancer if under age 26. Encourage safe sexual practices, to use condoms and limit partners if not already in a monogamous relationsh ip. Do monthly self breast exams. Have mammogram yearly or every other year depending on family history. BRCA testing is now available for patients with strong genetic history of female cancer. If interested contact the office. Engage in daily exercise of low impact aerobic exercise 45-60 minutes 4-5 times weekly. Avoid tobacco and illicit drugs as well as using moderation with alcohol intake less than 1-2 8 oz beverages daily. This lifestyle behavior pattern will lead to less health conditions and longer life span. If BMI greater than 25 weight watchers or dietary consult advised. Patient received above instructio ns, and questions have been answered. If you have any questions please call or respond to this email. Patient was made aware of the patient portal and may obtain a paper copy of today's plan if desired. WWEHx of KACEY, ovaries remain in 2011. Non-cancer ous indication sHx of LEEP prior to hyst, unsure of date or pathology. Last pap 2017 - normalvagi nal pap done today due to unknown hx and patient preference STI testing declinedGe netic testing discussedR TC in 1 year or sooner if needed [id number] JAN LYNNE MD [facility] [address] [address] 12/09/2023 16:37:33 12/10/2023 09:23:34 Generalized tenderness of breast 806853155 N64.4 - patient reports tenderness occurring every few days for the last 2-3 months- no obvious aggravatin g or resolving factors- breast exam wnl, no abnormalit ies- will evaluate with imaging [id number] CHAR [facility] [address] [address] 01/26/2024 12:28:07 01/26/2024 13:59:45 Gynecologic examination 57442162 Z01.419 Z11.51 WWEno pap done todaySTI screen declinedma mmogram done last monthrouti ne labs PCP It is strongly advised to have an annual flu shot and up can obtain at most pharmacies . If you have not had a TDap shot in the last 10 years you should obtain one as well. Discussed with patient & provided with informatio n regarding HPV vaccine if applicable . Encourage safe sexual practices, to use condoms and limit partners if not already in a monogamous relationsh ip. Do monthly self breast exams. BRCA testing is now available for patients with strong genetic history of female cancer. If interested contact the office. Engage in regular exercise. Avoid tobacco and illicit drugs. This lifestyle behavior pattern will lead to less health conditions and longer life span. If BMI greater than 25 dietary consult advised. Patient received above instructio ns, and questions have been answered. Health Concerns Section Related Observation LastModified by Organization Detai ls LastModified Time None Recorded Concern Status LastModified by Organization Details LastModified Time None Recorded Advance Directives Directive N: Payers Encounter Date Sequence Insurance Name Policy Number Policy Mayer Covered Member ID Mayer Member ID Guarantor Name 05/13/2022 1 [facility] ON OR AFTER 09/07/20 (MEDICAID REPLACEMENT - HMO) Sheila Laraby [id number] Hseila Laraby 12/09/2023 1 [facility] ON OR AFTER 09/07/20 (MEDICAID REPLACEMENT - HMO) Sheila Laraby [id number] Sheila Laraby 01/26/2024 1 [facility] ON OR AFTER 09/07/20 (MEDICAID REPLACEMENT - HMO) Sheila Laraby [id number] Sheila Laraby Notes Date Note Type Note Provider Name and Address Organization Details Recorded Time 05/13/2022 text/html Annual GYNReport ed bypatient.Vulva:No genital lesion Vagina:Normal vaginal discharge Breast:No breast pain; No breast lump; No nipple discharge Sexual complaints:No sexual complaints; No pain during intercourse; Normal libido Menopausal Symptoms:No menopausal symptoms; Normal vaginal lubrication Psychological symptoms:No depression; No anxiety; No PMDD Preventive measures:Encourage self breast examination; Encourage regular exercise; Encourage no tobacco use; Encourage regular mammograms starting age 40 CHAR [facility]on [address], [place], [address], [facility] 05/13/2022 15:33:29 12/09/2023 text/html Patient presents for bilateral breast tenderness. She reports it is random pains every few days. This began about 3 months ago. No new medications or supplements. No noticeable breast changes. Mother had cervical cancer, s/p radical hysterectomy. Unsure family member with breast cancer. Some skin cancer. JAN LYNNE MD [address], [place], [address], [facility] 12/09/2023 17:16:22 01/26/2024 text/html Annual Rand Butter Post-MenopausalRepo rted bypatient.Menopausa l Symptoms:no menopausal symptoms; normal vaginal lubrication Vaginal Bleeding:history of menopause having occurred; no history of post menopausal bleeding Urinary Symptoms:no hematuria; no incontinence; no nocturia; no urinary frequency Vulva:no genital lesion; no vulvar atrophy Vagina:normal vaginal discharge; no vaginal atrophy Breast:no breast lump; no nipple discharge; no breast pain Sexual Complaints:no sexual complaints Psychological Symptoms:no depression; no anxiety Preventive Measures:encourage regular mammograms starting age 40; encourage self breast examination; encourage regular exercise; encourage no tobacco use; mammogram performed within the past yearNotes:38yoWWEHx of KACEY, ovaries remain in 2011. Non-cancerous indicationsHx of LEEP prior to hyst, unsure of date or pathology.last pap 05/2022 : nilm, HPV (-) [facility] [address], [place], [address], [facility] 01/26/2024 13:59:21 OBGyn Episode Ob Episode Information Episode Created Date Number of Fetuses Patient Bloodtype Patient rh Status Prepregnancy Weight lbs Domestic Partner Domestic Partner Phone Father Name Merchandising Lead Status 05/14/19 23 1 CLOSED Fetus Data First Name Last Name Admitted to NICU Weight (g) Sex Living Outcome Pediatric Complications Fetus ID Race Codes Race Delivery Type 3572.03 7 M Full Term [id number] Vaginal Delivery Eloy Calculation Initial Eloy Date Initial Exam Date Initial Exam Provider Initial Ultrasound Date Last Menstrual Period Date Ultra Sound Weeks Gestation 0 Eighteen To Twenty Week Eloy Update Ultra Sound Date Fundal Height At Umbil Quickening Date Ultra Sound Latest Weeks Gestation Final Eloy Confirmed By Final Leoy Confirmed Date Final Eloy Date Ultra Sound Latest Days Gestation 0 0 Menstrual History Last Menstrual Date Menses Monthly On Bcp Conception Prior Menses Frequency Hcg Plus Date Menarche Onset Age Delivery Information Delivery Date Delivery Type Labor Anesthesia Weeks Gestation Incision Type Labor Labor Length Hrs Delivered By Post Complications Tubal Sterilization Discharge Date Comments 2 40 Discharge Information Feeding Method Contraceptive Method Maternal HG B and HCT Levels Ob Episode Information Episode Created Date Number of Fetuses Patient Bloodtype Patient rh Status Prepregnancy Weight lbs Domestic Partner Domestic Partner Phone Father Name Merchandising Lead Status 05/14/19 23 1 CLOSED Fetus Data First Name Last Name Admitted to NICU Weight (g) Sex Living Outcome Pediatric Complications Fetus ID Race Codes Race Delivery Type 3826.95 [id number] F Full Term [id number] Vaginal Delivery Eloy Calculation Initial Eloy Date Initial Exam Date Initial Exam Provider Initial Ultrasound Date Last Menstrual Period Date Ultra Sound Weeks Gestation 0 Eighteen To Twenty Week Eloy Update Ultra Sound Date Fundal Height At Umbil Quickening Date Ultra Sound Latest Weeks Gestation Final Eloy Confirmed By Final Eloy Confirmed Date Final Eloy Date Ultra Sound Latest Days Gestation 0 0 Menstrual History Last Menstrual Date Menses Monthly On Bcp Conception Prior Menses Frequency Hcg Plus Date Menarche Onset Age Delivery Information Delivery Date Delivery Type Labor Anesthesia Weeks Gestation Incision Type Labor Labor Length Hrs Delivered By Post Complications Tubal Sterilization Discharge Date Comments 5 40 Discharge Information Feeding Method Contraceptive Method Maternal HG B and HCT Levels Ob Episode Information Episode Created Date Number of Fetuses Patient Bloodtype Patient rh Status Prepregnancy Weight lbs Domestic Partner Domestic Partner Phone Father Name Merchandising Lead Status 05/14/19 23 1 CLOSED Fetus Data First Name Last Name Admitted to NICU Weight (g) Sex Living Outcome Pediatric Complications Fetus ID Race Codes Race Delivery Type 3912.23 1 M Full Term [id number] Vaginal Delivery Eloy Calculation Initial Eloy Date Initial Exam Date Initial Exam Provider Initial Ultrasound Date Last Menstrual Period Date Ultra Sound Weeks Gestation 0 Eighteen To Twenty Week Eloy Update Ultra Sound Date Fundal Height At Umbil Quickening Date Ultra Sound Latest Weeks Gestation Final Eloy Confirmed By Final Eloy Confirmed Date Final Eloy Date Ultra Sound Latest Days Gestation 0 0 Menstrual History Last Menstrual Date Menses Monthly On Bcp Conception Prior Menses Frequency Hcg Plus Date Menarche Onset Age Delivery Information Delivery Date Delivery Type Labor Anesthesia Weeks Gestation Incision Type Labor Labor Length Hrs Delivered By Post Complications Tubal Sterilization Discharge Date Comments 2 40 Discharge Information Feeding Method Contraceptive Method Maternal HG B and HCT Levels Ob Episode Information Episode Created Date Number of Fetuses Patient Bloodtype Patient rh Status Prepregnancy Weight lbs Domestic Partner Domestic Partner Phone Father Name Merchandising Lead Status 01/26/20 24 1 CLOSED Fetus Data First Name Last Name Admitted to NICU Weight (g) Sex Living Outcome Pediatric Complications Fetus ID Race Codes Race Delivery Type , [place] [id number] Eloy Calculation Initial Eloy Date Initial Exam Date Initial Exam Provider Initial Ultrasound Date Last Menstrual Period Date Ultra Sound Weeks Gestation 0 Eighteen To Twenty Week Eloy Update Ultra Sound Date Fundal Height At Umbil Quickening Date Ultra Sound Latest Weeks Gestation Final Eloy Confirmed By Final Eloy Confirmed Date Final Eloy Date Ultra Sound Latest Days Gestation 0 0 Menstrual History Last Menstrual Date Menses Monthly On Bcp Conception Prior Menses Frequency Hcg Plus Date Menarche Onset Age Delivery Information Delivery Date Delivery Type Labor Anesthesia Weeks Gestation Incision Type Labor Labor Length Hrs Delivered By Post Complications Tubal Sterilization Discharge Date Comments 4 Discharge Information Feeding Method Contraceptive Method Maternal HG B and HCT Levels Ob Episode Information Episode Created Date Number of Fetuses Patient Bloodtype Patient rh Status Prepregnancy Weight lbs Domestic Partner Domestic Partner Phone Father Name Merchandising Lead Status 01/26/20 24 1 CLOSED Fetus Data First Name Last Name Admitted to NICU Weight (g) Sex Living Outcome Pediatric Complications Fetus ID Race Codes Race Delivery Type , [place] [id number] Eloy Calculation Initial Eloy Date Initial Exam Date Initial Exam Provider Initial Ultrasound Date Last Menstrual Period Date Ultra Sound Weeks Gestation 0 Eighteen To Twenty Week Eloy Update Ultra Sound Date Fundal Height At Umbil Quickening Date Ultra Sound Latest Weeks Gestation Final Eloy Confirmed By Final Eloy Confirmed Date Final Eloy Date Ultra Sound Latest Days Gestation 0 0 Menstrual History Last Menstrual Date Menses Monthly On Bcp Conception Prior Menses Frequency Hcg Plus Date Menarche Onset Age Delivery Information Delivery Date Delivery Type Labor Anesthesia Weeks Gestation Incision Type Labor Labor Length Hrs Delivered By Post Complications Tubal Sterilization Discharge Date Comments 6 Discharge Information Feeding Method Contraceptive Method Maternal HG B and HCT Levels
--- OUTSIDE RECORDS SUMMARY | 2024-07-02 16:16 | XMS_ITS | Encounter Summary ---
Author Organization [facility] Healthcare Address [address] [place] [address] Care Team Providers Care Clinical Courier Name Role Phone Bishnu Hassan MD Primary Care Provider [phone] Encounter Details Date Type Department Care Team ([facility] st Contact Info) Description 01/08/2024 Telephone [facility] Primary Care at [place] [id number] [place] [address] Bishnu Hassan MD [address] [place] [id number] Social History Tobacco Use Types Packs/Day Years Used Date Smoking Tobacco: Former Cigarettes 0.8 10.5 0 04/24/2012 - 10/14/2022 AUDIT-C Answer Date Recorded Q1: How often [...] points, staff should administer the PHQ-9) 0 09/30/2023 Comments No Sex and Gender Information Value Date Recorded Sex Assigned at Not on file Legal Sex Female 1:59 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
--- OUTSIDE RECORDS SUMMARY | 2024-07-02 16:16 | XMS_ITS | Continuity of Care Document ---
Author Organization [facility] Address [address] [place] [address] [place] [address] Phone Care Team Providers Care Professor Of Biblical Studies Name Role Phone Cy Perla MD Unavailable Unavailable Allergies, Adverse Reactions, Alerts Substance Reaction Status Criticality azithromycin Active No Information Medications Medication Instructions Dosage Effective Dates (start - stop) Status Comments Cipro 500 mg tablet take 1 tablet by oral route every 12 hours 500 MG - Active amitriptyline 25 mg tablet take 1 tablet by oral route every day at bedtime 25 MG - Active avoid driving or operate machines Valium 5 mg tablet take 1 tablet by oral route 2 times every day 5 MG - Active avoid driving or operate machines, PRN for anxiety, Procedures Procedure Date OFFICE/OUTPATIENT VISIT, EST PREV VISIT, EST, AGE 18-39 OFFICE/OUTPATIENT VISIT, EST OFFICE/OUTPATIENT VISIT, EST OFFICE/OUTPATIENT VISIT, EST PREV VISIT, EST, AGE 18-39 OFFICE/OUTPATIENT VISIT, EST OFFICE/OUTPATIENT VISIT, EST OFFICE/OUTPATIENT VISIT, EST PREV VISIT, EST, AGE 18-39 OFFICE/OUTPATIENT VISIT, EST OFFICE/OUTPATIENT VISIT, EST OFFICE/OUTPATIENT VISIT, EST PREV VISIT, EST, AGE 18-39 OFFICE/OUTPATIENT VISIT, EST OFFICE/OUTPATIENT VISIT, EST OFFICE/OUTPATIENT VISIT, EST OFFICE/OUTPATIENT VISIT, EST PREV VISIT, EST, AGE 18-39 OFFICE/OUTPATIENT VISIT, EST OFFICE/OUTPATIENT VISIT, EST OFFICE/OUTPATIENT VISIT, EST OFFICE/OUTPATIENT VISIT, EST PREV VISIT, EST, AGE 18-39 OFFICE/OUTPATIENT VISIT, EST OFFICE/OUTPATIENT VISIT, EST OFFICE/OUTPATIENT VISIT, EST OFFICE/OUTPATIENT VISIT, EST PREV VISIT, EST, AGE 18-39 OFFICE/OUTPATIENT VISIT, EST OFFICE/OUTPATIENT VISIT, EST OFFICE/OUTPATIENT VISIT, EST OFFICE/OUTPATIENT VISIT, EST OFFICE/OUTPATIENT VISIT, EST OFFICE/OUTPATIENT VISIT, EST PREV VISIT, EST, AGE 18-39 OFFICE/OUTPATIENT VISIT, NEW Advance Directives Directive Yes / No Effective Date File Name No Information Encounters Encounter Description Practice Location Reason(s) For Visit Diagnoses Date Provider Providers Copied on Encounter [facility], [address], [place], [place], [address], tel:[phone] [facility] No Information 2 Pan [address]. [address], [place], [place], [address] , [place]. tel:[phone] Referring Provider: Cy Perla [address], [place], [place], [address]. tel:[phone] OFFICE/OUTPA TIENT VISIT, EST [facility], [address], [place], [place], [address], tel:[phone] [facility] Family Medicine sick (chief complaint) Acute sinusitis 2 [address] [place]. [address], [place], [place], [address] , [place]. tel:[phone] Referring Provider: Cy Perla [address], [place], [place], [address]. tel:[phone] PREV VISIT, EST, AGE 18-39 [facility], [address], [place], [place], [address], [place] tel:[phone] [facility] physical (chief complaint) Encounter for general adult medical examination without abnormal findings 2 [facility]. [address], [place], [place], [address] , [place]. tel:[phone] Referring Provider: Clemencia Mendoza [address], [place], [place], [address]. tel:[phone] OFFICE/OUTPA TIENT VISIT, EST [facility], [address], [place], [place], [address], [place] tel:[phone] [facility] anxiety1 (chief complaint)GE RD1 (chief complaint) Generalized anxiety disorderGERD w/o esophagitis 1 [address] [place]. [address], [place], [place], [address] , [place]. tel:[phone] Referring Provider: Clemencia Mendoza [address], [place], [place], [address]. tel:[phone] OFFICE/OUTPA TIENT VISIT, EST [facility], [address], [place], [place], [address], [place] tel:[phone] [facility] GERD1 (chief complaint)an xiety1 (chief complaint)di zziness1 (chief complaint) Chest painDizzinessGene ralized anxiety disorder Jun- 1 [facility]. [address], [place], [place], [address] , [place]. tel:[phone] Referring Provider: Clemencia Mendoza [address], [place], [place], [address]. tel:[phone] OFFICE/OUTPA TIENT VISIT, EST [facility], [address], [place], [place], [address], [place] tel:[phone] [facility] toothache1 (chief complaint) Atypical facial pain 0 [facility] [place]. [address], [place], [place], [address] , [place]. [phone] Referring Provider: Clemencia Mendoza [address], [place], [place], [address]. tel:[phone] PREV VISIT, EST, AGE 18-39 [facility], [address], [place], [place], [address], [place] tel:[phone] [facility] physical (chief complaint) Encounter for general adult medical examination without abnormal findings 0 [facility] [place]. [address], [place], [place], [address] , [place]. [phone] Referring Provider: Clemencia Mendoza [address], [place], [place], [address]. tel:[phone] OFFICE/OUTPA TIENT VISIT, EST [facility], [address], [place], [place], [address], [place] tel:[phone] [facility] bug bite1 (chief complaint) Cellulitis of left upper limb 0 [address] [place]. [address], [place], [place], [address] , [place]. [phone] Referring Provider: Clemencia Mendoza [address], [place], [place], [address]. tel:[phone] OFFICE/OUTPA TIENT VISIT, EST [facility], [address], [place], [place], [address], [place] tel:[phone] [facility] anxiety1 (chief complaint)he adache1 (chief complaint)sp ot1 (chief complaint) HeadacheGeneraliz ed anxiety disorderRash 0 Pan Connolly [address], [place], [place], [address] , [place]. [phone] Referring Provider: Clemencia Mendoza [address], [place], [place], [address]. tel:[phone] OFFICE/OUTPA TIENT VISIT, EST [facility], [address], [place], [place], [address], [place] tel:[phone] [facility] Medicine anxiety1 (chief complaint)he adache1 (chief complaint) HeadacheGeneraliz ed anxiety disorder 0 [address] [place]. [address], [place], [place], [address] , [place]. tel:[phone] Referring Provider: Cy Perla [address], [place], [place], [address]. tel:[phone] PREV VISIT, EST, AGE 18-39 [facility], [address], [place], [place], [address], [place] tel:[phone] [facility] PHysical (chief complaint) Encntr for general adult medical exam w/o abnormal findings 9 [address] [place]. [address], [place], [place], [address] , [place]. tel:[phone] Referring Provider: Cy Perla [address], [place], [place], [address]. tel:[phone] OFFICE/OUTPA TIENT VISIT, EST [facility], [address], [place], [place], [address], [place] tel:[phone] [facility] anxiety1 (chief complaint)si nus1 (chief complaint) Acute bronchitisGeneral ized anxiety disorder 9 [address] [place]. [address], [place], [place], [address] , [place]. [phone] Referring Provider: Clemencia Mendoza [address], [place], [place], [address]. tel:[phone] OFFICE/OUTPA TIENT VISIT, EST [facility], [address], [place], [place], [address], [place] tel:[phone] [facility] Medicine headache1 (chief complaint)an xiety1 (chief complaint) HeadacheGeneraliz ed anxiety disorder 9 [address] [place]. [address], [place], [place], [address] , [place]. tel:[phone] OFFICE/OUTPA TIENT VISIT, EST [facility], [address], [place], [place], [address], [place] tel:[phone] [facility] Headache1 (chief complaint)an xiety1 (chief complaint)ch est pain1 (chief complaint)to bacco1 (chief complaint) Chest painHeadacheGener alized anxiety disorderTobacco use 8 [facility]. [address], [place], [place], [address] , [place]. tel:[phone] Referring Provider: Clemencia Mendoza [address], [place], [place], [address]. tel:[phone] PREV VISIT, EST, AGE 18-39 [facility], [address], [place], [place], [address], [place] tel:[phone] [facility] Physical (chief complaint) Encntr for general adult medical exam w/o abnormal findings 8 [address] [place]. [address], [place], [place], [address] , [place]. tel:[phone] Referring Provider: Clem[address], [place], [place], [address]. tel:[phone] OFFICE/OUTPA TIENT VISIT, EST [facility], [address], [place], [place], [address], [place] tel:[phone] [facility] headache1 (chief complaint)an xiety1 (chief complaint)he p expo (chief complaint) HeadacheGeneraliz ed anxiety disorderContact with and (suspected) exposure to viral hepatitis 8 [facility] [place]. [address], [place], [place], [address] , [place]. tel:[phone] Referring Provider: Clemencia Mendoza [address], [place], [place], [address]. tel:[phone] OFFICE/OUTPA TIENT VISIT, [facility], [address], [place], [place], [address], [place] [phone] [facility] headache1 (chief complaint)an axiety1 (chief complaint)wo rk physical (chief complaint) HeadacheTobacco useGeneralized anxiety disorder 8 [address] [place]. [address], [place], [place], [address] , [place]. tel:[phone] Referring Provider: Clemencia Mendoza [address], [place], [place], [address]. tel:[phone] OFFICE/OUTPA TIENT VISIT, [facility], [address], [place], [place], [address], [place] [phone] [facility] anxiety1 (chief complaint)fo late (chief complaint)he adache1 (chief complaint)pl atelet (chief complaint) Folate deficiencyHeadach eGeneralized anxiety disorderThrombocy topenia Feb- 7 [facility]. [address], [place], [place], [address] , [place]. [phone] Referring Provider: Clemencia M[address], [place], [place], [address]. tel:[phone] OFFICE/OUTPA TIENT VISIT, [facility], [address], [place], [place], [address], [place] [phone] [facility] anxiety1 (chief complaint)he adache1 (chief complaint)fo late (chief complaint)pl atelet1 (chief complaint) Folate deficiencyGeneral ized anxiety disorderHeadacheT hrombocytopenia Sep-0 7 Pan Connolly [address], [place], [place], [address] , [place]. [phone] Referring Provider: Clemencia Mendoza [address], [place], [place], [address]. tel:[phone] PREV VISIT, EST, AGE 18-39 [facility], [address], [place], [place], [address], [place] tel:[phone] [facility] Physical (chief complaint) Encntr for general adult medical exam w/o abnormal findings 7 [facility] [place]. [address], [place], [place], [address] , [place]. tel:[phone] Referring Provider: Clemencia Mendoza [address], [place], [place], [address]. tel:[phone] OFFICE/OUTPA TIENT VISIT, [facility], [address], [place], [place], [address], [place] tel:[phone] [facility] anxiety1 (chief complaint)he adache1 (chief complaint)le g pain1 (chief complaint) Pain in left lower legFolate deficiencyHeadach eGeneralized anxiety disorder 7 [address] [place]. [address], [place], [place], [address] , [place]. tel:[phone] Referring Provider: Cy Perla [address], [place], [place], [address]. tel:[phone] OFFICE/OUTPA TIENT VISIT, [facility], [address], [place], [place], [address], [place] tel:[phone] [facility] Anxiety1 (chief complaint)he adache1 (chief complaint)ba ck apin (chief complaint) Generalized anxiety disorderHeadacheL umbago 6 [address] [place]. [address], [place], [place], [address] , [place]. tel:[phone] Referring Provider: Clemencia Mendoza [address], [place], [place], [address]. tel:[phone] OFFICE/OUTPA TIENT VISIT, [facility], [address], [place], [place], [address], [place] tel:[phone] [facility] headache1 (chief complaint)an xiety1 (chief complaint)to nsil hypertrophy (chief complaint) Generalized anxiety disorderHeadacheA rnold-Chiari type I compression of brainHypertrophy of tonsils 6 [address] [place]. [address], [place], [place], [address] , [place]. [phone] Referring Provider: Clemencia Mendoza [address], [place], [place], [address]. tel:[phone] OFFICE/OUTPA TIENT VISIT, EST [facility], [address], [place], [place], [address], [place] tel:[phone] [facility] headache1 (chief complaint)fo late (chief complaint)an xiety1 (chief complaint) Folate deficiencyGeneral ized anxiety disorderHeadacheA rnold-Chiari type 1 compression of brain 6 [facility] [place]. [address], [place], [place], [address] , [place]. [phone] Referring Provider: Clemencia Mendoza [address], [place], [place], [address]. tel:[phone] PREV VISIT, EST, AGE 18-39 [facility], [address], [place], [place], [address], [place] tel:[phone] [facility] PHysical (chief complaint) Encntr for general adult medical exam w/o abnormal findings 6 Pan Connolly [address], [place], [place], [address] , [place]. [phone] Referring Provider: Clemencia Mendoza [address], [place], [place], [address]. tel:[phone] OFFICE/OUTPA TIENT VISIT, EST [facility], [address], [place], [place], [address], [place] tel:[phone] [facility] headache (chief complaint)an xiety (chief complaint) HeadacheGeneraliz ed anxiety disorder 5 [address] [place]. [address], [place], [place], [address] , [place]. tel:[phone] Referring Provider: Cy Perla, [address], [place], [place], [address]. tel:[phone] OFFICE/OUTPA TIENT VISIT, [facility], [address], [place], [place], [address], [place] [phone] [facility] Anxiety (chief complaint)vi tamin D (chief complaint) Sedative, hypnotic or anxiolytic dependence, unspecifiedGenera lized anxiety disorderVitamin deficiency Aug- 5 [facility] [place]. [address], [place], [place], [address] , [place]. [phone] Referring Provider: Clemencia Mendoza [address], [place], [place], [address]. tel:[phone] OFFICE/OUTPA TIENT VISIT, [facility], [address], [place], [place], [address], [place] [phone] [facility] anxiety (chief complaint)al opecia (chief complaint) Alopecia, unspecifiedGenera lized anxiety disorderSedative, hypnotic or anxiolytic dependence, unspecified 5 [address] [place]. [address], [place], [place], [address] , [place]. [phone] Referring Provider: Cy Perla [address], [place], [place], [address]. tel:[phone] OFFICE/OUTPA TIENT VISIT, [facility], [address], [place], [place], [address], [place] tel:[phone] [facility] hair loss (chief complaint)an xiety (chief complaint)vi tamin D (chief complaint) Alopecia, unspecifiedUnspec ified vitamin d deficiencyGeneral ized anxiety disorder 5 [address] [place]. [address], [place], [place], [address] , [place]. [phone] Referring Provider: Cy Perla [address], [place], [place], [address]. tel:[phone] PREV VISIT, EST, AGE 18-39 [facility], [address], [place], [place], [address], [place] tel:[phone] [facility] Physical (chief complaint) Routine Medical ExamRoutine Medical Exam 4 [facility] [place]. [address], [place], [place], [address] , [place]. tel:[phone] Referring Provider: Cy Perla [address], [place], [place], [address]. tel:[phone] OFFICE/OUTPA TIENT VISIT, [facility], [address], [place], [place], [address], [place] tel:[phone] [facility] Medicine anxiety (chief complaint)to bacco (chief complaint) Generalized anxiety disorderTobacco Abuse 4 [address] [place]. [address], [place], [place], [address] , [place]. tel:[phone] Referring Provider: Cy Perla [address], [place], [place], [address]. tel:[phone] OFFICE/OUTPA TIENT VISIT, EST [facility], [address], [place], [place], [address], [place] tel:[phone] [facility] Medicine anxiety (chief complaint) Generalized anxiety disorder 4 Pan Connolly [address], [place], [place], [address] , [place]. tel:[phone] Referring Provider: Cy Perla [address], [place], [place], [address]. tel:[phone] OFFICE/OUTPA TIENT VISIT, EST [facility], [address], [place], [place], [address], [place] tel:[phone] [facility] anxiety (chief complaint) Dietary surveillance and counselingGeneral ized anxiety disorderMajor depressive affective disorder, single episode, mild degree 4 Pan Connolly [address], [place], [place], [address] , [place]. [phone] Referring Provider: Cy Perla, [address], [place], [place], [address]. tel:[phone] OFFICE/OUTPA TIENT VISIT, [facility], [address], [place], [place], [address], [place] [phone] [facility] rib pain (chief complaint)an xiety (chief complaint) Dietary surveillance and counselingChest Pain, UnspecifiedGenera lized anxiety disorder 4 [address] [place]. [address], [place], [place], [address] , [place]. [phone] Referring Provider: Cy Perla [address], [place], [place], [address]. tel:[phone] OFFICE/OUTPA TIENT VISIT, [facility], [address], [place], [place], [address], [place] tel:[phone] [facility] anxiety (chief complaint)ch est pain (chief complaint) Dietary surveillance and counselingChest Pain, UnspecifiedGenera lized anxiety disorder 3 [address] [place]. [address], [place], [place], [address] , [place]. [phone] Referring Provider: Clemencia Mendoza [address], [place], [place], [address]. tel:[phone] OFFICE/OUTPA TIENT VISIT, [facility], [address], [place], [place], [address], [place] [phone] [facility] anxiety (chief complaint)vi tamin D (chief complaint) Dietary surveillance and counselingGeneral ized anxiety disorderUnspecifi ed vitamin d deficiency 3 [address] [place]. [address], [place], [place], [address] , [place]. [phone] Referring Provider: Cy Perla [address], [place], [place], [address]. tel:[phone] PREV VISIT, EST, AGE 18-39 [facility], [address], [address], [phone] [facility] Medicine Physical (chief complaint) Dietary surveillance and counselingRoutine Medical ExamRoutine Medical Exam Nov- 3 [facility] [place]. [address], [place], [place], [address] , [place]. [phone] Referring Provider: Cy Perla, [address], [place], [place], [address]. tel:[phone] OFFICE/OUTPA TIENT VISIT, [facility], [address], [address], [phone] [facility] Medicine anxiety (chief complaint)ch est pain (chief complaint) Dietary surveillance and counselingChest Pain, UnspecifiedGenera lized anxiety disorder 3 [address] [place]. [address], [place], [place], [address] , [place]. [phone] Family History Family Member Type Diagnosis Age At Onset Mother Problem (finding) Cancer - shoe puller [place] Mother Problem (finding) Anxiety Father Problem (finding) Alive and well Brother Problem (finding) Stroke Mother Problem (finding) Asthma Payers Payer name Insurance type Covered alliance party ID Authoriza tion(s) No Information Social History Type Description Quantity Date Captured Comments Sex Female Smoking Status No Information Chief Complaint And Reason For Visit No Information Plan Of Treatment Date Type Action Status Goal Td vaccine. Due on due Goal Tdap. Due on due Goal Pap/HPV testing. Due on due Goal Influenza vaccine. Due on due Goal Depression screening. Due on due Goal Td vaccine. Due on due Goal Tdap. Due on due Goal Pap/HPV testing. Due on due Goal Influenza vaccine. Due on due Goal Depression screening. Due on due Goal Influenza vaccine. Due on due Goal Pap/HPV testing. Due on due Goal Depression screening. Due on due Goal Td vaccine. Due on due Goal Tdap. Due on due Goal Tdap. Due on due Goal Td vaccine. Due on due Goal Influenza vaccine. Due on due Goal Pap/HPV testing. Due on due Goal Depression screening. Due on due Goal Depression screening. Due on due Goal Pap/HPV testing. Due on due Goal Influenza vaccine. Due on due Goal Td vaccine. Due on due Goal Tdap. Due on due Goal Tdap. Due on due Goal Td vaccine. Due on due Goal Influenza vaccine. Due on due Goal Pap/HPV testing. Due on due Goal Depression screening. Due on due Goal Tdap. Due on due Goal Td vaccine. Due on due Goal Influenza vaccine. Due on due Goal Pap/HPV testing. Due on due Goal Depression screening. Due on due Goal Depression screening. Due on due Goal Pap/HPV testing. Due on due Goal Influenza vaccine. Due on due Goal Td vaccine. Due on due Goal Tdap. Due on due Goal Pap/HPV testing. Due on due Goal Depression screening. Due on due Goal Tdap. Due on due Goal Td vaccine. Due on due Goal Influenza vaccine. Due on due Goal Pap/HPV testing. Due on due Goal Depression screening. Due on due Goal Tdap. Due on due Goal Td vaccine. Due on due Goal Influenza vaccine. Due on Oc due Goal Tobacco cessation counseling completed Goal Special diet education compl eted Goal Influenza vaccine. Due on Ma due Goal Td vaccine. Due on 19 due Goal Tdap. Due on due Goal Depression screening. Due on due Goal Pap/HPV testing. Due on due Goal Special diet education compl eted Goal Tobacco cessation counseling completed Goal Pap/HPV testing. Due on due Goal Depression screening. Due on due Goal Tdap. Due on due Goal Td vaccine. Due on 19 due Goal Influenza vaccine. Due on due Goal Special diet education compl eted Goal Depression screening. Due on due Goal Pap/HPV testing. Due on due Goal Influenza vaccine. Due on due Goal Td vaccine. Due on 18 due Goal Tdap. Due on due Goal Special diet education compl eted Goal Pap/HPV testing. Due on due Goal Tdap. Due on due Goal Td vaccine. Due on 18 due Goal Influenza vaccine. Due on due Goal Depression screening. Due on due Goal Special diet education compl eted Goal Depression screening. Due on due Goal Influenza vaccine. Due on due Goal Td vaccine. Due on 18 due Goal Tdap. Due on due Goal Pap/HPV testing. Due on due Goal Pap/HPV testing. Due on due Goal Tdap. Due on due Goal Td vaccine. Due on 18 due Goal Depression screening. Due on due Goal Td vaccine. Due on 17 due Goal Pap/HPV testing. Due on due Goal Tdap. Due on due Goal Depression screening. Due on due Goal Pap/HPV testing. Due on due Goal Depression screening. Due on due Goal Tdap. Due on due Goal Td vaccine. Due on due Goal Depression screening. Due on due Goal Td vaccine. Due on due Goal Pap/HPV testing. Due on due Goal Tdap. Due on due Goal Depression screening. Due on due Goal Pap/HPV testing. Due on due Goal Tdap. Due on due Goal Td vaccine. Due on 17 due Goal Depression screening. Due on due Goal Td vaccine. Due on 16 due Goal Tdap. Due on due Goal Pap/HPV testing. Due on due Goal Depression screening. Due on due Goal Pap/HPV testing. Due on due Goal Tdap. Due on due Goal Td vaccine. Due on 16 due Goal Pap/HPV testing. Due on due Goal Depression screening. Due on due Goal Tdap. Due on due Goal Td vaccine. Due on 16 due Goal Pap/HPV testing. Due on due Goal Td vaccine. Due on 16 due Goal Depression screening. Due on due Goal Tdap. Due on due Goal Pap/HPV testing. Due on due Goal Td vaccine. Due on 15 due Goal Depression screening. Due on due Goal Tdap. Due on due Goal Depression screening. Due on due Goal Pap/HPV testing. Due on due Goal Td vaccine. Due on 15 due Goal Tdap. Due on due Referral Ordered: CHEST X-RAY PA/LAT TWO-VIEWS ordered Referral Ordered: [facility] : Internal Medicine : Cardiovascular Disease (related to Encntr for general adult medical exam w/o abnormal findings) ordered Referral Referred To: Richard Lyles [address] [place], [place] [id number] Ordered: Referrals: [facility] : Internal Medicine : Cardiovascular Disease. Richard Lyles. Evaluate and treat ordered Referral Ordered: LUMBAR XRAY AP AND LAT ONLY ordered Referral Ordered: Neurology (related to Encntr for general adult medical exam w/o abnormal findings) ordered Referral Ordered: Referrals: Neurology. Evaluate and treat ordered Referral Ordered: Referral: Dermatology. ordered History Of Present Illness Encounter Date Complaint History Of Prese nt Illness sick P tc/o sore thro at and bilateral ear pain and sinus congestion with purulent drainage for 2-3 days. Pt denies any fever, cough, sob or headache. Pt denies any dysphagia. Pt is vaccinated for COVID. physical Pt needs annual physical Pt has chronic anxiety. Pt denies any depression or any suicidal or homicidal thought .Pt denies any crying spells. Pt takes valium and doing ok. Pt also has insomnia and chronic migraine headache. Pt takes amitriptyline qhs and doing ok. Pt rarely has migraine headache. Pt denies any head injury or waking up at night with headache. Pt c/o sore throat and low grade fever as high as 100.7. Pt denies any sob or cough or headache. Pt denies any dysphagia Pt denies any sick contact. Pt is not vaccinated for COVID. anxiety1 Pt has chronic a nxiety. pt denies any depression or any suicidal thought Pt takes valium and doing ok pt denies any crying spells GERD Pt took omeprazo le for 4 weeks and she had negative chest x ray and her chest bubbling feeling and discomfort resolved. Pt denies any chest pain or cough or GERD GERD Pt notices some gas bubble type of pain around midsternal area whenever she swallows regardless or liquid or solid for two days. Pt lamonte any nausea, vomiting, dysphagia, early satiety, GERD, sore throat, abdominal pain, chest pain, drooling, sob, etc Pt has some mild dry cough which is typical of her due to smoking history. Pt denies any exertional chest pain. Pt denies any diaphoresis, radiation of pain to neck or arm. Pt denies any calf pain, recent travel or bedrest. Pt only notices the above symptoms when she swallow or when she coughs. Pt denies any injury. Pt is very vague regarding the bubble feeling around her midsternal area. Pt denies any nighttime pain. anxiety1 Pt has chronic a nxiety. pt denies any depression or any suicidal thought Pt takes valium and doing ok pt denies any crying spells dizziness1 Pt states that s he kind feel slightly off during last several weeks but not sure what is wrong. Pt feels mild dizziness and just kind of blah feeling Pt denies any worsening headache. Pt takes amitriptyline which works ok. Pt wants lab work. Pt denies any syncope, vertigo. Pt denies any chest pain or palpitation, Pt denies any orthostasis toothache1 Pt c/o acute ons et of left lower toothache since last friday. Pt had filing in but the tooth has been chipping off for long time .Pt notices very mild puffiness around left jaw area .Pt c/o pain around the root of left lower molar area. Pt could not find a dentist. Pt denies any fever, sore throat, ear pain . physical Pt needs annual physical. Pt has chronic recurrent migraine headache. Pt has not had any headache for several months until two days ago. Pt c/o persistent throbbing migraine headache with nausea. Pt has chronic anxiety Pt denies any depression or any suicidal thought ,Pt denies any crying spells. Pt takes valium and doing ok. Pt also c/o myalgia, mild sore throat, headache, fatigue since this morning Pt denies any coughing or sob. Pt denies any fever ,Pt denies any loss of taste and smell. Pt takes amitriptyline nightly for insomnia and doing ok bug bite1 Pt was cleaning pool yesterday and she was bite by something around left elbow but not sure what, ? wasp. Pt initially notices some redness spreading from the bite loree and around left elbow which resolved since then. pt has normal ROm left elbow. Pt notices a small bite loree adjacent to left elbow with slightly redness. Pt currently denies any warmth, pain or any redness or swelling. Pt is able to move her left elbow without any difficulty. Pt notices slightly sore around the bite loree. Pt denies any drainage ,Pt denies any fever, or sob. anxiety1 Pt has chronic a nxiety pt denies any depression or any suicidal thought Pt takes valium and doing ok pt denies any crying spells headache1 Pt has chronic h eadache pt states that amitriptyline does help but she has not been taking it daily due to sleepiness .Pt states that she has hard time waking up at night or in the morning with 50 mg amitriptyline .Pt states that she has more frequent headache without amitriptyline Pt only has been taking amicycline 2-3 per week. spot1 Pt thinks that s he thinks that she got some poison IV and she notices a small blister left wrist area since last week and she popped it and now it is just a red spot without itching Pt notices some clear fluid from the blister. Pt denies any bug bite Pt denies any other rash. Pt denies any pain anxiety1 Pt has chronic a nxiety pt denies any depression or any suicidal thought Pt takes valium and doing ok pt denies any crying spells headache1 Pt has chronic m igraine headache Pt doing ok with amitriptyline Pt rarely has headache currently. PHysical Pt needs annual physical. Pt has chronic anxiety. Pt denies any depression or any suicidal thought Pt denies any crying spells Pt doing ok with valium PRN. Pt has chronic migraine headache pt has headache 3-4 per month Pt denies any worsening headache. Pt denies any head injury. pt denies waking up at night with headache. Pt sees neurology. pt failed topamax. Pt is on amitriptyline which does help to lessen her headache. Pt had normal MRI of brain last year. Pt denies any other complaints sinus1 Pt c/o sinus con gestion, running nose productive coughing with gree phlegm, sore throat for 3-4 days. Pt denies any nausea, vomiting. Pt has mild watery diarrhea as well. Pt denies any sick contact pt denies any recent travel anxiety1 Pt has chronic a nxiety pt denies any depression or any suicidal thought Pt takes valium and doing ok pt denies any crying spells headache1 Pt has chronic h eadache Pt has mild chiari malformation but is not surgical candidate. Pt sees neurology currently. pt was also evaluated by neurosurgery as well. Her MRi of brain last November was actually normal. pt states that she rarely has headache now while on amitriptyline. 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 Patient denies any depression or suicidal homicidal thoughts. Patient denies any crying spells. Patient takes valium PRN and doing ok. tobacco1 Pt smokes close to 1 pack per day. Pt denies any sob. Pt does not have any intention to quit smoking now. Pt failed wellbutrin chest pain1 Pt has atypical chest pain. Pt went to see cardiology and she had negative ETT and echo. Pt has not had chest pain for 1-2 weeks now. Pt denies any diaphoresis or any exertional chest pain. anxiety1 Pt has chronic a nxiety. Pt denies any depression or any suicidal thought. pt denies any crying spells Pt is off wellbutrin for a while. Pt only takes valium for anxiety Pt doing ok currently Headache1 Pt has chronic h eadache Pt has Chiari malformation. Pt is seeing neurology. pt denies any worsening headache. Pt is waiting for MRi approval from insurance. Pt denies any acute headache. Pt has stable migraine headache about 1-2 per month Pt does have photophobia with headache Physical Pt needs annual physical. Pt has chronic migraine headache Pt has throbbing temporal headache with nausea and photophobia. pt has been having headache only 1-2 per month now with higher dose of amitriptyline Pt used to have headache 2-3 headache per week. Pt denies any head injury Pt denies waking up at night with headache Pt has chronic anxiety Pt denies any depression or any suicidal thought pt weaned herself off wellbutrin and she is doing ok currently pt denies any suicidal or homicidal thought. Pt denies any crying spells Pt states that her mood is ok without wellbutrin. Pt has stabbing chest pain left midsternal area on and off for several years. pt states that chest pain occur randomly Pt lamonte any exertional chest pain pt denies any sob. Pt denies any diaphoresis or nausea. Pt denies any acute cp. Pt has cp 1-2 per week and lasts several mins and does awayPt denies any other complaints headache1 Pt has chronic m igraine headache. Pt c/o throbbing headache frontal area. Pt has headache every other day. Pt has photophobia and nausea with headache. pt denies any head injury. Pt denies waking up at night with headache. Pt denies any acute headache. pt denies any head injury anxiety1 pt has chronic a nxiety and depression Pt takes wellbutrin and valium and doing ok. Pt denies any suicidal or homicidal thought. 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 Pt has been cutting her nail and also handle her blood sometimes. her client did have some bleeding cutting her nail and she thinks that she may came into contact with that. Above incident occurred 4 weeks ago. 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 Pt started to work at [employer] anaxiety1 Pt has chronic a nxiety and depression Pt takes wellbutrin and vailum PRn and doing ok. pt denies any suicidal or homicidal thought. Pt denies any cyirng spells headache1 Pt has chronic m igraine headahe. pt takes amitriptyline qhs and she denies any headache. Pt failed topamax and imitrex in the past Pt has headache 1-2 per month and she takes OTC and doing ok. Pt denies any acute headache. Pt denies any head injury or waking up at night with headache anxiety1 Pt has chronic a nxity and depression. Pt takes wellbutrin and valium and doing ok. Pt denies any suicidal or homicial thought. Pt denies any cyring spells folate Pt has low foalt e. Pt has been eating more green vegetable. Pt has been taking folic acid daily. her folic acid level is normal. . Pt feels less fatigue headache1 Pt has chronic m igraine headacche. Pt has chiari malformation but nonsurgical. pt was evaluated and cleared by neurosurgery. pt takes amitriptyine and she does not have any headache. Pt denies any head injury. . platelet Her platelet and LFT are normal now. Pt denies any bruising or bleeding anxiety1 Pt has chronic a nxiety and depression. Pt has been undergoing a lot of stress lately and her depression and anxiety has been worse. Pt has crying spells. Pt has poor motivation and lack of interests. Pt denies any suicidal or homicidal thought headache1 Pt doing ok with amitriptyline. Pt rearely has any headache. Pt has not used imitrex since it did not help per patient. Pt has occassional headache about 1-2 per month but it is not severe migraine. Pt denies any head injury. Pt denies any waking up at night with headache. Pt states that she is afraid of taking amitriptyline due to potential for weight gain platelet1 Pt has history o f mild borderline platelet. Pt denies any bruising or bleeding. Pt states that she rarely drinks alcohol. Pt denies any abd pain folate Pt has folate de ficiency. Pt states that she does eat green leafy vegetables. Pt feels mild fatigue overall. Physical Pt needs annual physical. Pt has chronic headache. Pt has borderline chiari, which is not surgical candidate. She was seen by neurology and neurosurgery in the past and basically she just has migraine vs nonspecific headache. Pt c/o throbbing headache. with nausea, vomiting and photophobia. Pt has been taking amitriptyline which did work well to prevent headache until recenty when her headache seems becoming more frequent. Pt has bene having headache about once per week. Pt denies any head injury. Pt denies any waking up at night with headache. Pt also has chronic anxiety. Pt denies any depression or any suicidal thought. Pt takes valium and doing ok. Pt denies any other complaints. headache1 Pt has chronic m igraine headache. Pt states that she has not had any headache since taking amitritpyline at night. Pt has not needed to use imitrex. Pt denies any drowiness, constipation, dry mouth with amitritpyline. leg pain1 Pt c/o mild left lateral lower leg cramp and pain for 3 days. Pt denies any recent travel or bedrest. Pt denies any calf pain. Pt denies any SOB Or chest pain. Pt denies any injury. Pt denies any low back pain and sciatica anxiety1 Pt has chronic a nxiety Pt denies any depression or any suicidal thought. pt denies any crying spells. Pt takes valium PRN and doing ok. back apin Pt c/o sharp mini n around Lower t and upper L area for one month. Pt denies any injury. Pt states that the pain is worse when she lean on the area. Pt denies any sciatica Pt has 4/10 pain. Pt denies any injury or rash headache1 Pt has chronic m igraine like headache 6-7 per month. Pt has sharp pain behind eye arnd around frontal area. Pt has nausea and photophobia as well. Pt does have chirimalformation PT seen neurosurgery recnetly and was told no surgery necessary. Pt failed topamax.. Pt never tried imitrex. Pt did not want to try propranolol. Pt has mild sinus congestion intermittently Anxiety1 Pt has chronic a nxiety Pt denies any depression or any suicidal thought. Pt denies any crying spells.. pt takes valium and doing ok headache1 Pt has chronic h eadache. Pt is seeing neurology. Her neurologist wants her to try propranolol but she does not want to take it. Pt had MRI of brain done which showed mild chiari malformation with crowding of the foramen magnum. pt was referred to neurosugery at [facility]. Pt lamonte any worsening or acute headache anxiety1 Pt has chronic a nxiety Pt denies any depression or any suicidal thought Pt denies any crying spells. tonsil hypertrophy PT has mild t onsil hypertrophy. Pt denies any trouble with swallowing or breathing. anxiety1 PT has chronic a nxiety. Pt denies any depression or any suicidal thought. Pt states that valium is helping her anxiety. Pt denies any crying spells. headache1 Pt has chronic m igraine headache about 1-2 per week. Pt has borderline chiari malformation. Pt has throbbing headache with nausea and photophobia. Pt denies any head injury. Pt used to see neurology. Pt is concerned about MRI and wants to see neurology again. Pt states that she used to have headache daily but now only 1-2 per week. No triggering factor folate Pt has slighlty low folate. Pt eats vegetables. Pt is not anemic. Pt denies any fatigue PHysical Pt needs annual physical. Pt has chronic anxiety Pt has frequent panic attacks. Pt denies any depression or any suicidal thought Pt denies any crying spells. pt states that xanax no longer works.. pt has migraine headache but topamax did not help. Pt is concerned about chiari malformation. Pt wants to see neurology. Pt denies any acute headache now Pt has lost 16 pounds since last 3 years. Pt denies any GI complaints. anxiety The patient pres ents with anxious/fearful thoughts but denies fatigue. The anxiety is associated with headache. The patient denies any vomiting. Additional information: Pt has chronic anxiety. Pt denies any depression or any suicdial thought. Pt takes xanax PRN and working ok. headache Pertinent negati ves include vomiting. Additional information: Pt has chronic throbbing bilateral temporal headache at least once per week for over 10 years. Pt denies any head injury. Pt has photophobia with nausea with hedache. Pt denies any change in quality of pain. Pt takes excedrin migran which helps. vitamin D Pt has low vitam in D Anxiety Additional infor mation: Pt has chronic anxiety. Pt denies any depression or any suicidal thought. Pt takes xanax PRN. Instructions Date Instruction Additional Infor mation Quit smoking. Related to Encnt r for general adult medical exam w/o abnormal findings Increase activity. Related to En cntr for general adult medical exam w/o abnormal findings Special diet education Related t o Body mass index (BMI) 26.0-26.9, adult Perform monthly self breast examinations. Related to Encntr for general adult medical exam w/o abnormal findings Quit smoking. Related to Encnt r for general adult medical exam w/o abnormal findings Special diet education Related t o Body mass index (BMI) 26.0-26.9, adult Quit smoking Related to Acute bronchitis Special diet education Related t o Body mass index (BMI) 26.0-26.9, adult Special diet education Related t o Body mass index (BMI) 26.0-26.9, adult Quit smoking Related to Gener alized anxiety disorder Special diet education Related t o Body mass index (BMI) 26.0-26.9, adult Perform monthly self breast examinations. Related to Encntr for general adult medical exam w/o abnormal findings Quit smoking. Related to Encnt r for general adult medical exam w/o abnormal findings Increase activity. Related to En cntr for general adult medical exam w/o abnormal findings Quit smoking Related to Heada cristiano Quit smoking Related to Heada cristiano Prescribed Diet Educ ation/Lifestyle Education Regarding Diet Related to Dietary Surveillance and Counseling Prescribed Activity and Exercise Education Related to Dietary Surveillance and Counseling Prescribed Diet Educ ation/Lifestyle Education Regarding Diet Related to Dietary Surveillance and Counseling Quit smoking Related to Folat e deficiency Prescribed Activity and Exercise Education Related to Dietary Surveillance and Counseling Prescribed Activity and Exercise Education Related to Dietary Surveillance and Counseling Prescribed Diet Educ ation/Lifestyle Education Regarding Diet Related to Dietary Surveillance and Counseling Quit smoking Related to Folat e deficiency Decrease caloric intake Related to Dietary surveillance counseling Dietary counseling Related to Di etary surveillance counseling Dietary counseling Related to Di etary surveillance counseling Decrease caloric intake Related to Dietary surveillance counseling Dietary counseling Related to Di etary surveillance counseling Decrease caloric intake Related to Dietary surveillance counseling Decrease caloric intake Related to Dietary surveillance counseling Dietary counseling Related to Di etary surveillance counseling Decrease caloric intake Related to Dietary surveillance counseling Dietary counseling Related to Di etary surveillance counseling Dietary counseling Related to Di etary surveillance counseling Decrease caloric intake Related to Dietary surveillance counseling Assessments Type Assessment Date No Information
--- OUTSIDE RECORDS SUMMARY | 2024-07-02 16:16 | XMS_ITS | Clinical Summary ---
Author Organization [facility] Address [address] [place] [id number] Care Team Providers Care Transportation Dispatcher Name Role Phone Unavailable Primary Care Provider Unavailabl e Social History Tobacco Use Types Packs/Day Years Used Date Smoking Tobacco: Never Assessed Comments Unknown Sex and Gender Information Value Date Recorded Sex Assigned at Not on file Legal Sex Female 7:09 PM CDT Gender Identity Not on file Sexual Orientation Not on file Plan of Treatment Health Maintenance Due Date Last Done Comments Cervical Cancer Screening Pa p Smear (Age 30 to 64) Every 3 Years 1984 Annual Physical 08/08/1987 Hepatitis C 2002 DTaP, Tdap and Td Vaccines ( 1 - Tdap) 08/08/2003 Hepatitis B Vaccines (1 of 3 - 19+ 3-dose series) 08/08/2003 Cervical Cancer Screening Pa p with HPV Testing (Age 30 to 64) Every 5 Years 2014 Cervical Cancer Screening with HPV 2014 COVID-19 Vaccine (2023-2 5 season) 2023 HPV Vaccines Aged Out No longer eligi ble based on patient's age to complete this topic Meningococcal B Vaccine Aged Out No l onger eligible based on patient's age to complete this topic Meningococcal Vaccine Aged Out No steven alexandra eligible based on patient's age to complete this topic Pneumococcal Vaccine: Pediat rics (0 to 5 Years) and At-Risk Patients (6 to 49 Years) Aged Out No longer eligible b ased on patient's age to complete this topic RSV Immunizations Under 20 Months Aged Out No longer eligible based on patient's age to complete this topic
== END 2024-07-02 16:12 | disposition home or self-care (01) ==
PROVIDERS: PCP Family Medicine; Visit Provider Family Medicine
DX: J32.9 Chronic sinusitis, unspecified (principal); J34.2 Deviated nasal septum; R22.1 Localized swelling, mass and lump, neck
CPT/HCPCS: 70486; 70490